=== PATIENT | female | born 1970 | race Two or more races ===

== ENCOUNTER 2020-12-08 12:31 | Outpatient (REF) | payer MEDICAID, SELFPAY ==
--- NOTE | ~2020-12-08 | US_ITS ---
EXAMINATION: ULTRASOUND PELVIS AND TRANSVAGINAL CLINICAL INFORMATION: Postmenopausal bleeding COMPARISON: None TECHNIQUE: Transabdominal and transvaginal imaging of pelvis is performed. FINDINGS: The uterus is anteverted and anteflexed measuring 7.1 cm in length, 3.6 cm in AP and 4.8 cm in transverse dimension. This small hypoechoic lesion in the right upper body of uterus measuring 0.73 x 0.56 x 0.59 cm suggestive of a small fibroid. No additional lesions seen. The uterus is slightly heterogeneous. The endometrial thickness is 0.3 cm. Small nabothian cysts are seen in the cervix. Right ovary measures 2.9 x 1.3 x 1.8 cm and volume 3.5 mL and appears unremarkable. Previously right ovary measured 2.0 x 2.9 x 1.9 cm. Left ovary measures 2.7 x 0.9 x 1.7 cm and volume 2.2 mL. It appears unremarkable. Left ovary measured 3.0 x 2.1 x 2.7 cm. There is no free fluid in the cul-de-sac US/US pelvic and transvaginal IMPRESSION: Small uterine fibroid. Mild heterogeneous uterus with normal endometrial thickness of 0.3 cm. Unremarkable ovaries. Small nabothian cysts in the cervix.
== END 2020-12-08 12:32 | disposition home or self-care (01) ==
LOC: HO.US 12:31
PROVIDERS: PCP Nurse Practitioner Primary Care; Visit Provider Nurse Practitioner Primary Care
DX: N95.0 Postmenopausal bleeding (principal)
CPT/HCPCS: 76830; 76856

== ENCOUNTER 2021-04-11 12:27 | Outpatient (REF) | payer MEDICAID, SELFPAY ==
--- NOTE | ~2021-04-11 | MM_ITS ---
EXAMINATION: MM DIAGNOSTIC DIGITAL BREAST TOMOSYNTHESIS, BILATERAL US DIAGNOSTIC ULTRASOUND BREAST, RIGHT CLINICAL INFORMATION: Pain upper outer right breast from axilla to the periareolar region. No palpable mass. No erythema. The lifetime risk of breast cancer based on the Tyrer-Cuzick Model is 6%. COMPARISON: Mammography: 02/20/2018, 02/14/2017 TECHNIQUE: Digital breast tomosynthesis is performed in both the craniocaudal and mediolateral oblique views along with computer-aided detection (CAD). Synthesized 2D images are generated from the tomosynthesis. Additional exaggerated right CC view is provided. Ultrasound right breast is targeted to the area of clinical concern upper outer quadrant from anterior to posterior breast and axilla. Grayscale imaging and color Doppler are performed without and with harmonics. FINDINGS: There are scattered areas of fibroglandular density (ACR BI-RADS breast composition Category b). Breast tissue composition borders on heterogeneously dense in the bilateral anterior breasts. Parenchymal pattern is similar to prior exams. There are no significant masses, abnormal calcifications, or other abnormalities. There is no developing density. No skin thickening or coarsening of the Oliver's ligaments. No significant changes from prior studies. Ultrasound right breast demonstrates no cystic or solid mass or architectural abnormality. No focal duct ectasia. No skin thickening or edema tracking in soft tissue planes. No adenopathy. Results are discussed with the patient at time of visit. MM/MM tomosynthesis diagnostic BI IMPRESSION: No mammographic evidence of malignancy or focal inflammatory changes. Unremarkable right breast ultrasound. ASSESSMENT: BI-RADS 1: Negative RECOMMENDATION: 1. Patient's breast pain should be managed based on the clinical impression. 2. Otherwise, routine annual screening mammography. This patient's information was entered into a reminder system with a target due date for their next mammogram.
== END 2021-04-11 12:28 | disposition home or self-care (01) ==
LOC: HO.MAMMO 12:27
PROVIDERS: Visit Provider Advanced Practice Midwife
DX: N63.15 Unspecified lump in the right breast, overlapping quadrants (principal)
CPT/HCPCS: 76642; 77062; 77066

== ENCOUNTER 2021-06-14 16:58 | Outpatient (REF) | payer MEDICAID, SELFPAY ==
--- NOTE | ~2021-06-14 | XR_ITS ---
EXAMINATION: XR CERVICAL SPINE CLINICAL INFORMATION: Anesthesia of skin. COMPARISON: None. TECHNIQUE: 6 views of the cervical spine. FINDINGS: No abnormal prevertebral soft tissue swelling is seen. No acute cervical spine fracture is noted. There is mild narrowing of the C6-C7 disc space. Neural foramina appear unremarkable. XR/XR cervical spine 4V IMPRESSION: No significant cervical spine abnormality appreciated.
== END 2021-06-14 16:59 | disposition home or self-care (01) ==
LOC: HO.XRAY 16:58
PROVIDERS: Absent Provider General Practice; PCP General Practice; Visit Provider Internal Medicine
DX: R20.0 Anesthesia of skin (principal)
CPT/HCPCS: 72050

== ENCOUNTER 2021-07-27 08:40 | Outpatient (REF) | payer MEDICAID, SELFPAY ==
--- NOTE | 2021-07-27 | EMG_ITS ---
Left median and ulnar motor and sensory studies were performed. Left radial sensory study was performed and paraspinal muscles with some limb muscles were tested with a needle. IMPRESSION: Mild left mid cervical chronic radiculopathy. MD LUCRECIA Luong/NEAL / [phone]
--- NOTE | ~2021-07-27 | XR_ITS ---
EXAMINATION: XR chest 2V CLINICAL INFORMATION: Reason for Exam ?SARCOID AND ANKYLOSING SPONDYLITIS COMPARISON: Chest radiograph 07/08/2017 TECHNIQUE: 2 views of the chest XR/XR chest 2V FINDINGS/IMPRESSION: Clear lungs. No pneumothorax. No pleural effusion. Normal cardiomediastinal silhouette.
--- NOTE | ~2021-07-27 | XR_ITS ---
EXAMINATION: XR lumbar spine 2-3V CLINICAL INFORMATION: Question sarcoidosis COMPARISON: Sacrum and coccyx radiographs 07/08/2017 TECHNIQUE: 3 views of the lumbar spine XR/XR lumbar spine 2-3V FINDINGS/IMPRESSION: 5 nonrib-bearing lumbar-type vertebral bodies. Vertebral body heights are maintained. Alignment is maintained. Moderate degenerative disc disease at L5-S1 with loss of disc space height and facet arthropathy. Paravertebral soft tissues are unremarkable.
== END 2021-07-27 08:41 | disposition home or self-care (01) ==
LOC: HO.NEURO 08:40
PROVIDERS: Absent Provider Optometrist; PCP General Practice; Visit Provider Internal Medicine
DX: H20.9 Unspecified iridocyclitis (principal); R20.0 Anesthesia of skin
CPT/HCPCS: 71046; 72100; 95886; 95909

== ENCOUNTER 2022-04-12 15:49 | Outpatient (REF) | payer MEDICAID, SELFPAY ==
[2022-04-12 16:14] LABS: Appearance Urine Clear; Color Urine Yellow; Glucose Urine UA Negative (Negative); Leukocyte Esterase Urine Moderate (2+) (Negative); Nitrite Urine Negative (Negative); PH 6.5 (5.0-9.0); Specific Gravity - Urine 1.015 (1.005-1.025); UMIC TRIGGER UACC YES; Urine Blood Negative (Negative); Urine Ketones Negative (Negative); Urine Protein Negative (Neg-Trace)
[2022-04-12 16:24] LABS: Bacteria Urine Trace (None Seen); Hyaline Casts Urine 0-2 /LPF (0-2); RBC Urine 0-2 /HPF (0-2); UACC Culture Trigger YES
== END 2022-04-12 15:50 | disposition home or self-care (01) ==
LOC: HO.LNP 15:49
PROVIDERS: Visit Provider Internal Medicine Rheumatology
DX: H20.13 Chronic iridocyclitis, bilateral (principal)
CPT/HCPCS: 81001; 81003; 87086; 87147

== ENCOUNTER 2022-04-29 11:06 | Emergency (ER) | payer MEDICAID, SELFPAY ==
--- NOTE | ~2022-04-29 | CT_ITS ---
EXAMINATION: CT ANGIOGRAM OF THE CHEST WITH AND WITHOUT CONTRAST (CT PULMONARY ANGIOGRAM FOR PE) CLINICAL INFORMATION: Abnormal EKG. Positive D-Dimer. COMPARISON: Chest and rib radiographs dated 07/08/2017. TECHNIQUE: Prior to contrast administration, noncontrast localization images were obtained. Subsequently, multidetector volumetric imaging was performed from the thoracic inlet to below the diaphragms following the administration of 65 mL Omnipaque 350 intravenous contrast. No contrast reaction reported Sagittal, coronal, and MIP oblique sagittal reformatted images were obtained on the CT workstation, uploaded to PACS, and reviewed. This CT examination was performed using dose optimization techniques as appropriate, variously including the following: *Automated exposure control *Adjustment of mA and/or kV according to patient size (this includes techniques or standardized protocols for targeted exams where dose is matched to indication/reason for exam; i.e. extremities or head) *Use of iterative reconstruction technique Total exam dose-length product 122 mGy-cm FINDINGS: QUALITY OF STUDY/CONTRAST BOLUS: Satisfactory. PULMONARY ARTERIES: No central or segmental pulmonary emboli. THORACIC AORTA: No aneurysm or dissection. LUNG: Minimal linear probable atelectasis within the lingula and right middle lobe. There are faint patchy areas of ground-glass opacity within the left upper lobe, which could represent atelectasis versus a very early infectious or inflammatory process. No large, confluent airspace consolidation. The central airways are patent. PLEURA: No pleural effusion or pneumothorax. MEDIASTINUM: Normal heart size. No pericardial effusion. No hilar or mediastinal lymphadenopathy. No evidence of septal bowing or right heart strain. No coronary artery calcifications. CHEST WALL/AXILLA: No axillary or internal mammary lymphadenopathy. OSSEOUS STRUCTURES: No acute or suspicious osseous abnormality. UPPER ABDOMEN: Unremarkable. No reflux of contrast into the hepatic veins to suggest elevated right heart pressures. CT/CT angio chest PE protocol IMPRESSION: 1. No central or segmental pulmonary embolism. 2. Minimal linear probable atelectasis within the lingula and right middle lobe. Faint patchy ground-glass opacities within the left upper lobe which could represent atelectasis versus a very early infectious or inflammatory process. No large, confluent airspace consolidation. 3. No significant lymphadenopathy. VTE: negative
--- NOTE | ~2022-04-29 | XR_ITS ---
EXAMINATION: XR CHEST CLINICAL INFORMATION: Chest pain, shortness of breath. COMPARISON: 07/27/2021 chest radiographs. TECHNIQUE: 2 views of the chest were obtained. FINDINGS: No significant abnormality is noted involving the heart, lungs, mediastinum, bony thorax or soft tissues. XR/XR chest 2V IMPRESSION: No acute cardiopulmonary process.
[2022-04-29 11:21] VITALS: BP 134/77; PULSE 119; RESP 18; TEMP 38; O2SAT 97; BMI 24.7
--- NOTE | 2022-04-29 11:23 | ED_ITS ---
HPI - URI/Sore Throat General Chief Complaint: Dyspnea <PRIYA Thacker - Last Filed: 04/29/22 11:31> Stated Complaint: SOB <PRIYA Thacker - Last Filed: 04/29/22 11:31> Time Seen by Provider: 04/29/22 12:35 <PRIYA Thacker - Last Filed: 04/29/22 11:31> History of Present Illness HPI Narrative: 52yoF who had COVID-19 approximately 1 month ago reports she was having persistent shortness of breath therefore she followed up with her primary care provider Dr. Garcia in [facility] who then sent her to [facility] for a CT scan with IV contrast last week although she reports she has not received the results and then Saturday night she developed subjective fevers, chills, fatigue, malaise, cough/worsening shortness of breath, dyspnea on exertion, orthopnea, chest tightness/discomfort therefore she came here for further evaluation treatment. She reports she has been taking Motrin Tylenol round the clock. Denies any other symptoms related to this. CT at [facility] showed multiple pulmonary nodules. patient has noticed with exertion she is more short of breath. Patient with new chest pain and new fever. <Tom Zafar MD - Last Filed: 04/29/22 17:15> MD elicited complaint: fever and cough <Tom Zafar MD - Last Filed: 04/29/22 17:15> Pertinent past history: other (covid) <Tom Zafar MD - Last Filed: 04/29/22 17:15> Onset (ago): day(s) <Tom Zafar MD - Last Filed: 04/29/22 17:15> Consistency: intermittent <Tom Zafar MD - Last Filed: 04/29/22 17:15> Severity: mild <Tom Zafar MD - Last Filed: 04/29/22 17:15> Exacerbating factors: exertion <Tom Zafar MD - Last Filed: 04/29/22 17:15> Associated symptoms: cough, chest pain and shortness of breath <Tom Zafar MD - Last Filed: 04/29/22 17:15> Related Data Home Medications: Previous Rx's Medication Instructions Recorded levofloxacin 500 mg tablet 500 mg PO DAILY 10 days #10 tabs 04/29/22 <PRIYA Thacker - Last Filed: 04/29/22 11:31> Allergies/Adverse Reactions: Allergies Allergy/AdvReac Type Severity Reaction Status Date / Time No Known Allergies Allergy Unverified 01/28/20 16:58 [No Known Allergies*] <PRIYA Thacker - Last Filed: 04/29/22 11:31> [facility] Social History Social History: Social History Advance Directives: No Advance Directives Information Provided: No <PRIYA Thacker - Last Filed: 04/29/22 11:31> Physical Exam Vital Signs: Vital Signs: Last Vital Signs Temp 100.4 F 04/29/22 11:21 Pulse 81 04/29/22 15:52 Resp 15 04/29/22 15:52 BP 107/57 L 04/29/22 15:55 Pulse Ox 96 04/29/22 15:52 O2 Del Method 04/29/22 15:52 BMI result Body Mass Index 24.7 <PRIYA Thacker - Last Filed: 04/29/22 11:31> Vital Signs: Last Vital Signs Temp 100.4 F 04/29/22 11:21 Pulse 81 04/29/22 15:52 Resp 15 04/29/22 15:52 BP 107/57 L 04/29/22 15:55 Pulse Ox 96 04/29/22 15:52 O2 Del Method 04/29/22 15:52 BMI result Body Mass Index 24.7 <Tom Zafar MD - Last Filed: 04/29/22 17:15> Course Course Course Narrative: RME-11:30am - 52yoF who had COVID-19 approximately 1 month ago reports she was having persistent shortness of breath therefore she followed up with her primary care provider Dr. Garcia in [facility] who then sent her to [facility] for a CT scan with IV contrast last week although she reports she has not received the results and then Saturday night she developed subjective fevers, chills, fatigue, malaise, cough/worsening shortness of breath, dyspnea on exertion, orthopnea, chest tightness/discomfort therefore she came here for further evaluation treatment. She reports she has been taking Motrin Tylenol round the clock. Denies any other symptoms related to this. Plan: Labs, CXR, EKG, COVID/RSV/flu swab. Patient is tachycardic/febrile. Will give 975 mg of Tylenol. Patient is stable she will be sent back to the waiting room to be evaluated in the ED. Will try to get records from [facility] from the patient's CT scan. <PRIYA Thacker - Last Filed: 04/29/22 11:31> Reevaluation(s) Reevaluation #1: FINDINGS: No significant abnormality is noted involving the heart, lungs, mediastinum, bony thorax or soft tissues. XR/XR chest 2V IMPRESSION: No acute cardiopulmonary process. Dictated By: Dami Oliver MD Signed By: <Electronically signed by Dami Oliver MD in [place]> 04/29/22 1147 <Tom Zafar MD - Last Filed: 04/29/22 17:15> Reevaluation #2: patient with both influenza a and pneumonia will get home on levaquin <Tom Zafar MD - Last Filed: 04/29/22 17:15> Time: 17:13 <Tom Zafar MD - Last Filed: 04/29/22 17:15> Reevaluation #3: I spent 40 minutes of critical care, with interventions, assessments, speaking to patient, consultants, and family. <Tom Zafar MD - Last Filed: 04/29/22 17:15> Medications Administered Discontinued Medications Generic Name Dose Route Start Last Admin Trade Name Freq PRN Reason Stop Dose Admin Acetaminophen 975 mg 04/29/22 11:28 04/29/22 12:12 Acetaminophen 325 Mg Tablet PO 04/29/22 11:29 975 mg ONCE ONE Administration Iohexol 100 ml 04/29/22 16:32 04/29/22 16:32 Iohexol 350 Mg/Ml 100 Ml Infus..Btl IV 04/29/22 16:33 65 ml ONCE ONE Administration <PRIYA Thacker - Last Filed: 04/29/22 11:31> Medications Administered Discontinued Medications Generic Name Dose Route Start Last Admin Trade Name Freq PRN Reason Stop Dose Admin Acetaminophen 975 mg 04/29/22 11:28 04/29/22 12:12 Acetaminophen 325 Mg Tablet PO 04/29/22 11:29 975 mg ONCE ONE Administration Iohexol 100 ml 04/29/22 16:32 04/29/22 16:32 Iohexol 350 Mg/Ml 100 Ml Infus..Btl IV 04/29/22 16:33 65 ml ONCE ONE Administration <Tom Zafar MD - Last Filed: 04/29/22 17:15> Medical Decision Making Differential Diagnosis pneumonia, viral illness, cardiac ischemia, pulmonary embolus <Tom spring MD - Last Filed: 04/29/22 17:15> Admission/Observation given the above differential patient is being considered for admission <Tom Zafar MD - Last Filed: 04/29/22 17:15> Lab Data Result Diagrams: : 04/29/22 12:28 04/29/22 12:28 <PRIYA Thacker - Last Filed: 04/29/22 11:31> Labs: Lab Results 04/29/22 04/29/22 04/29/22 Range/Units 12:21 12:28 12:28 WBC 9.0 (4.8-10.8) X10*3/uL RBC 4.10 L (4.20-5.50) X10*6/uL Hgb 13.0 (12.0-16.0) g/dl Hct 38.2 (37.0-47.0) % MCV 93.2 (80.0-98.0) fL MCH 31.7 (27.0-33.0) pg MCHC 34.0 (31.0-35.0) g/dl RDW 12.9 (11.0-16.0) % Plt Count 147 L (160-400) X10*3/uL MPV 9.7 (9.4-12.3) fL Immature Gran % (Auto) 0.2 (0.0-0.4) % Neut % (Auto) 84.0 H (45-73) % Lymph % (Auto) 6.6 L (20-40) % [place] % (Auto) 9.0 (2-11) % Eos % (Auto) 0.0 (0-4) % Baso % (Auto) 0.2 (0-2) % Lymph # (Auto) 0.6 L (1.2-4.9) X10*3/uL [place] # (Auto) 0.8 (0.1-1.2) X10*3/uL Eos # (Auto) 0.0 (0.0-0.4) X10*3/uL Baso # (Auto) 0.0 (0.0-0.2) X10*3/uL Abs Immat Gran (auto) 0.02 (0.00-0.03) X10*3/uL Absolute Neuts (auto) 7.5 (2.0-8.3) x10*3/uL Absolute Nucleated RBC 0.000 (0.0-0.012) X10*3/uL Nucleated RBC % (auto) 0.0 (0.0-0.2) /100WBC PT 12.4 (10.0-13.1) SEC INR 1.1 (0.9-1.1) D-Dimer High Sensitivty 332 NG/ML Sodium (135-145) mmol/L Potassium (3.3-5.1) mmol/L Chloride (96-108) mmol/L Carbon Dioxide (22-29) mmol/L Anion Gap (12-20) BUN (9-16) mg/dL Creatinine (0.5-1.4) mg/dL Estim Creat Clear Calc Estimated GFR Random Glucose (60-115) mg/dL Calcium (8.4-10.2) mg/dL Magnesium (1.6-2.6) mg/dL Total Bilirubin (0.0-1.0) mg/dL AST (5-31) U/L ALT (0-31) U/L Alkaline Phosphatase (39-117) U/L Troponin I High Sens (<3.5-17.0) ng/L B-Natriuretic Peptide (<100) pg/mL Total Protein (6.5-8.0) g/dL Albumin (3.5-5.0) g/dL Influenza Type A (PCR) POSITIVE A (Negative) Influenza Type B (PCR) NEGATIVE (Negative) RSV RNA Qual (PCR) NEGATIVE (Negative) SARS-CoV-2 RNA (RT-PCR) NEGATIVE (Negative) 04/29/22 04/29/22 04/29/22 Range/Units 12:28 12:28 13:48 WBC (4.8-10.8) X10*3/uL RBC (4.20-5.50) X10*6/uL Hgb (12.0-16.0) g/dl Hct (37.0-47.0) % MCV (80.0-98.0) fL MCH (27.0-33.0) pg MCHC (31.0-35.0) g/dl RDW (11.0-16.0) % Plt Count (160-400) X10*3/uL MPV (9.4-12.3) fL Immature Gran % (Auto) (0.0-0.4) % Neut % (Auto) (45-73) % Lymph % (Auto) (20-40) % Assumption % (Auto) (2-11) % Eos % (Auto) (0-4) % Baso % (Auto) (0-2) % Lymph # (Auto) (1.2-4.9) X10*3/uL Assumption # (Auto) (0.1-1.2) X10*3/uL Eos # (Auto) (0.0-0.4) X10*3/uL Baso # (Auto) (0.0-0.2) X10*3/uL Abs Immat Gran (auto) (0.00-0.03) X10*3/uL Absolute Neuts (auto) (2.0-8.3) x10*3/uL Absolute Nucleated RBC (0.0-0.012) X10*3/uL Nucleated RBC % (auto) (0.0-0.2) /100WBC PT (10.0-13.1) SEC INR (0.9-1.1) D-Dimer High Sensitivty NG/ML Sodium 137 (135-145) mmol/L Potassium 4.0 (3.3-5.1) mmol/L Chloride 106 (96-108) mmol/L Carbon Dioxide 23 (22-29) mmol/L Anion Gap 12 (12-20) BUN 9 (9-16) mg/dL Creatinine 0.80 (0.5-1.4) mg/dL Estim Creat Clear Calc 72.9 Estimated GFR > 60 Random Glucose 126 H (60-115) mg/dL Calcium 8.5 (8.4-10.2) mg/dL Magnesium 1.8 (1.6-2.6) mg/dL Total Bilirubin 0.5 (0.0-1.0) mg/dL AST 21 (5-31) U/L ALT 16 (0-31) U/L Alkaline Phosphatase 46 (39-117) U/L Troponin I High Sens < 3.5 (<3.5-17.0) ng/L B-Natriuretic Peptide 13 (<100) pg/mL Total Protein 7.2 (6.5-8.0) g/dL Albumin 4.3 (3.5-5.0) g/dL Influenza Type A (PCR) (Negative) Influenza Type B (PCR) (Negative) RSV RNA Qual (PCR) (Negative) SARS-CoV-2 RNA (RT-PCR) (Negative) <PRIYA Thacker - Last Filed: 04/29/22 11:31> Lab Results 04/29/22 04/29/22 04/29/22 Range/Units 12:21 12:28 12:28 WBC 9.0 (4.8-10.8) X10*3/uL RBC 4.10 L (4.20-5.50) X10*6/uL Hgb 13.0 (12.0-16.0) g/dl Hct 38.2 (37.0-47.0) % MCV 93.2 (80.0-98.0) fL MCH 31.7 (27.0-33.0) pg MCHC 34.0 (31.0-35.0) g/dl RDW 12.9 (11.0-16.0) % Plt Count 147 L (160-400) X10*3/uL MPV 9.7 (9.4-12.3) fL Immature Gran % (Auto) 0.2 (0.0-0.4) % Neut % (Auto) 84.0 H (45-73) % Lymph % (Auto) 6.6 L (20-40) % Assumption % (Auto) 9.0 (2-11) % Eos % (Auto) 0.0 (0-4) % Baso % (Auto) 0.2 (0-2) % Lymph # (Auto) 0.6 L (1.2-4.9) X10*3/uL Assumption # (Auto) 0.8 (0.1-1.2) X10*3/uL Eos # (Auto) 0.0 (0.0-0.4) X10*3/uL Baso # (Auto) 0.0 (0.0-0.2) X10*3/uL Abs Immat Gran (auto) 0.02 (0.00-0.03) X10*3/uL Absolute Neuts (auto) 7.5 (2.0-8.3) x10*3/uL Absolute Nucleated RBC 0.000 (0.0-0.012) X10*3/uL Nucleated RBC % (auto) 0.0 (0.0-0.2) /100WBC PT 12.4 (10.0-13.1) SEC INR 1.1 (0.9-1.1) D-Dimer High Sensitivty 332 NG/ML Sodium (135-145) mmol/L Potassium (3.3-5.1) mmol/L Chloride (96-108) mmol/L Carbon Dioxide (22-29) mmol/L Anion Gap (12-20) BUN (9-16) mg/dL Creatinine (0.5-1.4) mg/dL Estim Creat Clear Calc Estimated GFR Random Glucose (60-115) mg/dL Calcium (8.4-10.2) mg/dL Magnesium (1.6-2.6) mg/dL Total Bilirubin (0.0-1.0) mg/dL AST (5-31) U/L ALT (0-31) U/L Alkaline Phosphatase (39-117) U/L Troponin I High Sens (<3.5-17.0) ng/L B-Natriuretic Peptide (<100) pg/mL Total Protein (6.5-8.0) g/dL Albumin (3.5-5.0) g/dL Influenza Type A (PCR) POSITIVE A (Negative) Influenza Type B (PCR) NEGATIVE (Negative) RSV RNA Qual (PCR) NEGATIVE (Negative) SARS-CoV-2 RNA (RT-PCR) NEGATIVE (Negative) 04/29/22 04/29/22 04/29/22 Range/Units 12:28 12:28 13:48 WBC (4.8-10.8) X10*3/uL RBC (4.20-5.50) X10*6/uL Hgb (12.0-16.0) g/dl Hct (37.0-47.0) % MCV (80.0-98.0) fL MCH (27.0-33.0) pg MCHC (31.0-35.0) g/dl RDW (11.0-16.0) % Plt Count (160-400) X10*3/uL MPV (9.4-12.3) fL Immature Gran % (Auto) (0.0-0.4) % Neut % (Auto) (45-73) % Lymph % (Auto) (20-40) % Assumption % (Auto) (2-11) % Eos % (Auto) (0-4) % Baso % (Auto) (0-2) % Lymph # (Auto) (1.2-4.9) X10*3/uL Assumption # (Auto) (0.1-1.2) X10*3/uL Eos # (Auto) (0.0-0.4) X10*3/uL Baso # (Auto) (0.0-0.2) X10*3/uL Abs Immat Gran (auto) (0.00-0.03) X10*3/uL Absolute Neuts (auto) (2.0-8.3) x10*3/uL Absolute Nucleated RBC (0.0-0.012) X10*3/uL Nucleated RBC % (auto) (0.0-0.2) /100WBC PT (10.0-13.1) SEC INR (0.9-1.1) D-Dimer High Sensitivty NG/ML Sodium 137 (135-145) mmol/L Potassium 4.0 (3.3-5.1) mmol/L Chloride 106 (96-108) mmol/L Carbon Dioxide 23 (22-29) mmol/L Anion Gap 12 (12-20) BUN 9 (9-16) mg/dL Creatinine 0.80 (0.5-1.4) mg/dL Estim Creat Clear Calc 72.9 Estimated GFR > 60 Random Glucose 126 H (60-115) mg/dL Calcium 8.5 (8.4-10.2) mg/dL Magnesium 1.8 (1.6-2.6) mg/dL Total Bilirubin 0.5 (0.0-1.0) mg/dL AST 21 (5-31) U/L ALT 16 (0-31) U/L Alkaline Phosphatase 46 (39-117) U/L Troponin I High Sens < 3.5 (<3.5-17.0) ng/L B-Natriuretic Peptide 13 (<100) pg/mL Total Protein 7.2 (6.5-8.0) g/dL Albumin 4.3 (3.5-5.0) g/dL Influenza Type A (PCR) (Negative) Influenza Type B (PCR) (Negative) RSV RNA Qual (PCR) (Negative) SARS-CoV-2 RNA (RT-PCR) (Negative) <Tom Zafar MD - Last Filed: 04/29/22 17:15> Independent Interpretation I performed an independent interpretation of an: EKG (My independent interpretentation is Sinus tachycardia, flipped ts inferior and st depression laterally) and Plain X-Ray (CXR viewed and interpreted by me is no infiltrate this agrees with the radiologist) <Tom Zafar MD - Last Filed: 04/29/22 17:15> Radiology Impression Discussion of test interpretation with radiology: I have reviewed the radiologist's reading. <Tom Zafar MD - Last Filed: 04/29/22 17:15> Radiologist Impression: IMPRESSION: 1.? No central or segmental pulmonary embolism. ? 2.? Minimal linear probable atelectasis within the lingula and right middle lobe. Faint patchy ground-glass opacities within the left upper lobe which could represent atelectasis versus a very early infectious or inflammatory process. No large, confluent airspace consolidation. ? 3.? No significant lymphadenopathy. ? VTE: negative Dictated By: Daron Nagel MD Signed By: <Electronically signed by Daron Nagel MD in [place]> 04/29/22 170 <Tom Zafar MD - Last Filed: 04/29/22 17:15> Discharge Plan Discharge Clinical Impression: Pneumonia, Influenza A <PRIYA Thacker - Last Filed: 04/29/22 11:31> Patient Disposition: Home, Self-Care <PRIYA Thacker - Last Filed: 04/29/22 11:31> Instructions: Pneumonia (ED) <PRIYA Thacker - Last Filed: 04/29/22 11:31> Prescriptions: New levofloxacin 500 mg tablet 500 mg PO DAILY 10 Days Qty: 10 0RF <PRIYA Thacker - Last Filed: 04/29/22 11:31> Referrals: Sylvia Klein MD [Primary Care Provider] - 1 week <PRIYA Thacker - Last Filed: 04/29/22 11:31>
--- NOTE | 2022-04-29 11:27 | ECG_ITS ---
Test Reason : SOB Blood Pressure : / mmHG Vent. Rate : 103 BPM Atrial Rate : 103 BPM P-R Int : 136 ms QRS Dur : 074 ms QT Int : 324 ms P-R-T Axes : 030 -48 -15 degrees QTc Int : 424 ms Sinus tachycardia Left axis deviation Pulmonary disease pattern Nonspecific ST and T wave abnormality Abnormal ECG When compared with ECG of 06-JAN-2016 11:53, Vent. rate has increased BY [address] now depressed in Lateral leads T wave inversion now evident in Anterior leads Referred By: Shauna Dickson Electronically Signed By:Clinton Alvarez
[2022-04-29] MEDS: Acetaminophen 325 MG TABLET 975 MG PO (12:12)
[2022-04-29 12:33] LABS: MANUAL DIFF FLAG NO
[2022-04-29 12:34] LABS: Basophils Percent Auto 0.2 % (0-2); Hematocrit 38.2 % (37.0-47.0); Imm Gran Abs Auto 0.02 X10*3/uL (0.00-0.03); Imm Gran Pct Auto 0.2 % (0.0-0.4); Lymphocytes Absolute Auto 0.6 X10*3/uL (1.2-4.9); Lymphocytes Percent Auto 6.6 % (20-40); Mean Corpuscular Hemoglobin 31.7 pg (27.0-33.0); Mean Corpuscular Volume 93.2 fL (80.0-98.0); Mean Platelet Volume 9.7 fL (9.4-12.3); Monocytes Absolute Auto 0.8 X10*3/uL (0.1-1.2); Neutrophils Absolute Auto 7.5 x10*3/uL (2.0-8.3); Platelet Count 147 X10*3/uL (160-400); Red Cell Distribution Width 12.9 % (11.0-16.0)
[2022-04-29 12:42] LABS: INTERNATIONAL NORM RATIO 1.1 (0.9-1.1); Prothrombin Time 12.4 SEC (10.0-13.1)
[2022-04-29 13:01] LABS: D Dimer High Sensitivity 332 NG/ML
[2022-04-29 13:02] LABS: Alanine Aminotransferase 16 U/L (0-31); Albumin Level 4.3 g/dL (3.5-5.0); Alkaline Phosphatase 46 U/L (39-117); Anion Gap 12 (12-20); Aspartate Amino Transferase 21 U/L (5-31); Bilirubin Total 0.5 mg/dL (0.0-1.0); Blood Urea Nitrogen 9 mg/dL (9-16); Calcium 8.5 mg/dL (8.4-10.2); Carbon Dioxide 23 mmol/L (22-29); Chloride 106 mmol/L (96-108); Creatinine Clr Calc Pharmacy 72.9; Estimated Glomerular Filt Rate > 60; Glucose Random 126 mg/dL (60-115); Magnesium 1.8 mg/dL (1.6-2.6); Sodium 137 mmol/L (135-145); Total Protein 7.2 g/dL (6.5-8.0)
[2022-04-29 13:06] LABS: B Type Natriuretic Peptide 13 pg/mL (<100)
[2022-04-29 13:17] LABS: Influenza A PCR POSITIVE (Negative); Influenza B PCR NEGATIVE (Negative); Resp Syncy Virus RNA Qual PCR NEGATIVE (Negative); SARS COV2 PCR INHOUSE NEGATIVE (Negative)
[2022-04-29 14:46] LABS: Troponin-I High Sensitivity < 3.5 ng/L (<3.5-17.0)
[2022-04-29 15:52] VITALS: BP 98/44; PULSE 81; RESP 15; O2SAT 96
[2022-04-29 15:55] VITALS: BP 107/57
[2022-04-29] MEDS: iohexoL 350 MG/ML 100 ML INFUS..BTL IV (16:32)
[2022-04-29] MEDS: levoFLOXacin 500 MG TABLET PO (17:46)
== END 2022-04-29 18:03 | disposition home or self-care (01) ==
PROVIDERS: Physician Assistant Medical; Emergency Provider Emergency Medicine; PCP General Practice
DX: J10.00 Influenza due to other identified influenza virus with unspecified type of pneumonia (principal); R06.02 Shortness of breath; Z20.822 Contact with and (suspected) exposure to COVID-19; Z79.899 Other long term (current) drug therapy
CPT/HCPCS: 0241U; 36415; 71046; 71275; 80053; 83735; 83880; 84484; 85025; 85379; 85610; 93005; 99284; Q9967

== ENCOUNTER 2022-08-21 08:15 | Outpatient (REF) | payer MEDICAID, SELFPAY ==
--- NOTE | ~2022-08-21 | MM_ITS ---
EXAMINATION: MM SCREENING DIGITAL BREAST TOMOSYNTHESIS, BILATERAL CLINICAL INFORMATION: Screening. Asymptomatic. The lifetime risk of breast cancer based on the Tyrer-Cuzick Model is 6%. COMPARISON: Mammography: 04/11/2021, 02/20/2018, 02/14/2017; ultrasound right breast 04/11/2021 TECHNIQUE: Digital breast tomosynthesis is performed in both the craniocaudal and mediolateral oblique views along with computer-aided detection (CAD). Synthesized 2D images are generated from the tomosynthesis. FINDINGS: The breasts are heterogeneously dense, which may obscure small masses (ACR BI-RADS breast composition Category c). Denser breast tissue composition is predominantly in the anterior breasts, similar to prior studies. Remainder of the breasts are average fibroglandular. Parenchymal pattern is similar to prior studies and there is no developing density or architectural abnormality. There are no significant masses, abnormal calcifications, or other abnormalities. The axilla and and skin contours are unremarkable. MM/MM tomosynthesis screening BI IMPRESSION: No mammographic evidence of malignancy. ASSESSMENT: BI-RADS 1: Negative RECOMMENDATION: Routine annual mammography screening. This patient's information was entered into a reminder system with a target due date for their next mammogram.
== END 2022-08-21 08:16 | disposition home or self-care (01) ==
LOC: HO.MAMMO 08:15
PROVIDERS: PCP General Practice; Visit Provider Advanced Practice Midwife
DX: Z12.31 Encounter for screening mammogram for malignant neoplasm of breast (principal)
CPT/HCPCS: 77063; 77067

== ENCOUNTER 2023-01-11 15:40 | Outpatient (REF) | payer MEDICAID, SELFPAY ==
[2023-01-11 17:22] LABS: Basophils Absolute Auto 0.1 X10*3/uL (0.0-0.2); Eosinophils Absolute Auto 0.1 X10*3/uL (0.0-0.4); Eosinophils Percent Auto 1.2 % (0-4); Hematocrit 37.8 % (37.0-47.0); Hemoglobin 12.7 g/dl (12.0-16.0); Imm Gran Abs Auto 0.01 X10*3/uL (0.00-0.03); Imm Gran Pct Auto 0.2 % (0.0-0.4); Lymphocytes Absolute Auto 1.8 X10*3/uL (1.2-4.9); Lymphocytes Percent Auto 35.5 % (20-40); MANUAL DIFF FLAG NO; Mean Corpuscular HGB Conc 33.6 g/dl (31.0-35.0); Mean Corpuscular Hemoglobin 30.5 pg (27.0-33.0); Mean Corpuscular Volume 90.6 fL (80.0-98.0); Mean Platelet Volume 10.4 fL (9.4-12.3); Monocytes Absolute Auto 0.5 X10*3/uL (0.1-1.2); Monocytes Percent Auto 9.6 % (2-11); Neutrophils Absolute Auto 2.6 x10*3/uL (2.0-8.3); Neutrophils Percent Auto 52.5 % (45-73); Platelet Count 204 X10*3/uL (160-400); Red Blood Count 4.17 X10*6/uL (4.20-5.50); Red Cell Distribution Width 12.1 % (11.0-16.0)
[2023-01-11 18:47] LABS: Alanine Aminotransferase 15 U/L (0-31); Albumin Level 4.2 g/dL (3.5-5.0); Alkaline Phosphatase 36 U/L (39-117); Anion Gap 13 (12-20); Aspartate Amino Transferase 16 U/L (5-31); Bilirubin Total 0.4 mg/dL (0.0-1.0); Blood Urea Nitrogen 11 mg/dL (9-16); Calcium 9.2 mg/dL (8.4-10.2); Carbon Dioxide 23 mmol/L (22-29); Chloride 106 mmol/L (96-108); Estimated Glomerular Filt Rate > 60; Glucose Random 93 mg/dL (60-115); Potassium 4.3 mmol/L (3.3-5.1); Sodium 138 mmol/L (135-145); Total Protein 7.3 g/dL (6.5-8.0)
[2023-01-14 10:34] LABS: Absolute CD3 Count 1375 cells/uL (840-3060); Absolute CD4 Count 857 cells/uL (490-1740); Absolute CD8 Count 460 cells/uL (180-1170); Absolute Lymphocytes 1735 cells/uL (850-3900); CD4 CD8 Ratio 1.86 (0.86-5.00); Percent CD3 Cells 79 % (57-85); Percent CD4 Cells 49 % (30-61); Percent CD8 Cells 26 % (12-42)
[2023-01-14 14:58] LABS: HIV RNA PCR Qn Copies 41 copies/mL (NOT DETECTED); HIV RNA PCR Qn Log Copies 1.61 (NOT DETECTED)
== END 2023-01-11 15:41 | disposition home or self-care (01) ==
LOC: HO.HHCL 15:40
PROVIDERS: Visit Provider Family Medicine
DX: B20 Human immunodeficiency virus [HIV] disease (principal)
CPT/HCPCS: 36415; 80053; 85025; 86359; 86360; 87536

== ENCOUNTER 2023-05-24 11:02 | Outpatient (REF) | payer MEDICAID, SELFPAY ==
--- NOTE | ~2023-05-24 | XR_ITS ---
EXAMINATION: XR CHEST CLINICAL INFORMATION: Ongoing cough, chest discomfort and back pain. Evaluate for pneumonia. COMPARISON: 04/29/2022 TECHNIQUE: 2 views of the chest were obtained. FINDINGS: Lungs are well expanded. The bronchial atkinson are chronically diffusely thickened. On the lateral radiograph, linear opacities of atelectasis projects over the right middle lobe/lingula. Linear streaks of atelectasis were present in the right middle lobe and lingula on 04/29/2022. No acute pulmonary abnormality. No consolidation or pleural effusion. Cardiac silhouette has normal size and contour. There is chronic mild anterior height loss of the T6 and T7 vertebral bodies. XR/XR chest 2V IMPRESSION: * The bronchial atkinson are chronically thickened. Correlate for any history of asthma or bronchitis. No pneumonia. * There are persistent or recurrent linear opacities of atelectasis in the lingula and/or right middle lobe. No new abnormalities compared to 04/29/2022.
== END 2023-05-24 11:03 | disposition home or self-care (01) ==
LOC: HO.HHCX 11:02
PROVIDERS: Visit Provider Student in an Organized Health Care Education/Training Program
DX: R05.9 Cough, unspecified (principal)
CPT/HCPCS: 71046

== ENCOUNTER 2023-07-15 16:40 | Outpatient (REF) | payer MEDICAID, SELFPAY ==
[2023-08-03 09:18] LABS: HPV mRNA E6/E7 rflx Not Detected (Not Detected)
== END 2023-07-15 16:41 | disposition home or self-care (01) ==
LOC: HO.HHCLNP 16:40
PROVIDERS: Visit Provider Advanced Practice Midwife
DX: Z01.419 Encounter for gynecological examination (general) (routine) without abnormal findings (principal); B20 Human immunodeficiency virus [HIV] disease; K62.82 Dysplasia of anus; N93.9 Abnormal uterine and vaginal bleeding, unspecified
CPT/HCPCS: 87624; 88112; 88142

== ENCOUNTER 2023-07-26 08:35 | Outpatient (REF) | payer MEDICAID, SELFPAY ==
[2023-07-26 11:41] LABS: MANUAL DIFF FLAG NO
[2023-07-26 11:48] LABS: Basophils Absolute Auto 0.1 X10*3/uL (0.0-0.2); Basophils Percent Auto 1.1 % (0-2); Eosinophils Absolute Auto 0.1 X10*3/uL (0.0-0.4); Eosinophils Percent Auto 1.5 % (0-4); Hematocrit 36.6 % (37.0-47.0); Hemoglobin 12.7 g/dl (12.0-16.0); Imm Gran Abs Auto 0.01 X10*3/uL (0.00-0.03); Imm Gran Pct Auto 0.2 % (0.0-0.4); Lymphocytes Absolute Auto 1.7 X10*3/uL (1.2-4.9); Lymphocytes Percent Auto 37.3 % (20-40); Mean Corpuscular HGB Conc 34.7 g/dl (31.0-35.0); Mean Corpuscular Hemoglobin 31.3 pg (27.0-33.0); Mean Corpuscular Volume 90.1 fL (80.0-98.0); Monocytes Absolute Auto 0.4 X10*3/uL (0.1-1.2); Monocytes Percent Auto 7.9 % (2-11); Neutrophils Absolute Auto 2.4 x10*3/uL (2.0-8.3); Platelet Count 213 X10*3/uL (160-400); Red Blood Count 4.06 X10*6/uL (4.20-5.50); Red Cell Distribution Width 12.4 % (11.0-16.0); White Blood Count 4.5 X10*3/uL (4.8-10.8)
[2023-07-26 12:11] LABS: Alanine Aminotransferase 17 U/L (0-31); Albumin Level 4.4 g/dL (3.5-5.0); Alkaline Phosphatase 44 U/L (39-117); Anion Gap 13 (12-20); Aspartate Amino Transferase 17 U/L (5-31); Bilirubin Total 0.4 mg/dL (0.0-1.0); Blood Urea Nitrogen 14 mg/dL (9-16); Calcium 9.8 mg/dL (8.4-10.2); Carbon Dioxide 25 mmol/L (22-29); Chloride 108 mmol/L (96-108); Cholesterol 183 mg/dL (<200); Estimated Glomerular Filt Rate > 60; Glucose Random 98 mg/dL (60-115); HDL Cholesterol 37 mg/dL (>40); LDL Cholesterol Calculated 122 mg/dL (<100); Potassium 4.2 mmol/L (3.3-5.1); Sodium 142 mmol/L (135-145); Total Protein 7.4 g/dL (6.5-8.0); Triglycerides 124 mg/dL (<150)
[2023-07-26 12:22] LABS: Syphilis Screen Nonreactive (Nonreactive)
[2023-07-26 12:27] LABS: ~HepC Num1 7.78 S/CO (0.00-0.79); ~Hepatitis C Antibody Reactive (Nonreactive)
[2023-07-26 12:34] LABS: Reflex LDLD? No
[2023-07-28 20:39] LABS: TS Negative Control Passed; TS Panel A 0; TS Panel B 0; TS Positive Control Passed; TSpotTB Negative (Negative)
[2023-07-29 09:59] LABS: Absolute CD3 Count 1222 cells/uL (840-3060); Absolute CD4 Count 809 cells/uL (490-1740); Absolute CD8 Count 379 cells/uL (180-1170); Absolute Lymphocytes 1818 cells/uL (850-3900); CD4 CD8 Ratio 2.14 (0.86-5.00); Percent CD3 Cells 67 % (57-85); Percent CD4 Cells 45 % (30-61); Percent CD8 Cells 21 % (12-42)
[2023-07-29 13:49] LABS: HCV Log PCR <1.18 NOT DETECTED Log IU/mL (NOT DETECTED); HepC Viral Load <15 NOT DETECTED IU/mL (NOT DETECTED)
[2023-07-29 18:08] LABS: HIV RNA PCR Qn Copies 56 copies/mL (NOT DETECTED); HIV RNA PCR Qn Log Copies 1.75 (NOT DETECTED)
== END 2023-07-26 08:36 | disposition home or self-care (01) ==
LOC: HO.HHCL 08:35
PROVIDERS: Visit Provider Student in an Organized Health Care Education/Training Program
DX: B20 Human immunodeficiency virus [HIV] disease (principal)
CPT/HCPCS: 36415; 80053; 80061; 85025; 86359; 86360; 86481; 86780; 86803; 87522; 87536

== ENCOUNTER 2023-07-26 10:55 | Outpatient (REF) | payer MEDICAID, SELFPAY ==
--- NOTE | ~2023-07-26 | MM_ITS ---
EXAMINATION: MM DIAGNOSTIC DIGITAL BREAST TOMOSYNTHESIS, BILATERAL US BREAST LIMITED, LEFT MAMMOGRAPHY: CLINICAL INFORMATION: 53-year-old female complaining of left axillary pain, rule out mass. Patient here for bilateral screening as well. COMPARISON: Mammography: 08/21/2022, 04/11/2021, 02/20/2018, 02/14/2017. Ultrasound right breast 04/11/2021 TECHNIQUE: Digital breast tomosynthesis is performed in both the craniocaudal and mediolateral oblique views along with computer-aided detection (CAD). Synthesized 2D images are generated from the tomosynthesis. FINDINGS: The breasts are heterogeneously dense, which may obscure small masses (ACR BI-RADS breast composition Category c). There are no suspicious masses, suspicious grouped calcifications, or areas of architectural distortion in either breast. There are vascular calcifications. The parenchymal pattern is stable from prior exams. No abnormality noted in the axillary regions bilaterally. No skin abnormalities. ULTRASOUND: CLINICAL INFORMATION: Left axillary pain, rule out mass. COMPARISON: No relevant prior. TECHNIQUE: Targeted sonographic evaluation was performed using a high frequency linear transducer. Attention was focused on the left upper outer quadrant and left axilla in the region of breast pain. Selected archived documentation. FINDINGS: LEFT BREAST: There is a mixture of fatty and fibroglandular tissue. No suspicious mass is seen. There is no pathologic acoustic shadowing. No cystic abnormalities. There is no abnormal axillary adenopathy. No ultrasonographic abnormality is present in the left axilla in the region of pain. MM/MM tomosynthesis diagnostic BI IMPRESSION: There are no findings in either breast suspicious for malignancy. There is no mammographic or ultrasonographic abnormality in the left axilla in the region of axillary pain. Recommend clinical management of these symptoms. Otherwise, recommend resuming routine annual screening mammography. OVERALL ASSESSMENT: Mammography: BI-RADS 1 - Negative Ultrasound: BI-RADS 1 - Negative RECOMMENDATION: 1. Patient should be managed based on the clinical impression. 2. Otherwise, routine annual screening mammography. This patient's information was entered into a reminder system with a target due date for their next mammogram.
--- NOTE | ~2023-07-26 | US_ITS ---
EXAMINATION: US PELVIS CLINICAL INFORMATION: AUB COMPARISON: None available. TECHNIQUE: Ultrasound of the pelvis is performed using both transabdominal and transvaginal transducers along with Doppler. Transvaginal imaging is performed due to inadequate visualization transabdominally. FINDINGS: Uterus: The uterus is anteverted anteflexed and measures 7.1 x 2.6 x 4.3 cm. The double wall endometrial thickness is 0.2-0.3 cm. The uterus is smooth in contour and has normal myometrial echogenicity. No visible fibroid. A fibroid ultrasound was visualized on the previous ultrasound exam 12/08/2020. Adnexa: Both ovaries are visualized. There is normal color flow to the adnexa. There is no ovarian torsion. There is no pelvic ascites or fluid collection. Right ovary measures 2.2 x 0.9 x 1.5 cm. Volume 1.6 mL previously right ovary measured 2.9 x 1.3 x 1.8 cm Left ovary measures 1.9 x 1.0 x 1.4 cm. Volume 1.4 mL There is no free fluid in the cul-de-sac. Previously left ovary measured 2.7 x 0.9 x 1.7 cm. US/US pelvic and transvaginal IMPRESSION: Unremarkable uterus and ovaries.
== END 2023-07-26 10:56 | disposition home or self-care (01) ==
LOC: HO.MAMMO 10:55
PROVIDERS: Visit Provider Advanced Practice Midwife
DX: N64.4 Mastodynia (principal); N93.9 Abnormal uterine and vaginal bleeding, unspecified
CPT/HCPCS: 76642; 76830; 76856; 77062; 77066

== ENCOUNTER → 2023-07-26 11:00 | Outpatient (BNV) | payer MEDICAID, SELFPAY | PROVIDERS: Visit Provider Radiology Diagnostic Radiology | DX: R92.1 Mammographic calcification found on diagnostic imaging of breast (principal) | CPT/HCPCS: 76642; 77062; 77066 ==

== ENCOUNTER 2023-09-30 16:43 | Outpatient (REF) | payer MEDICAID, SELFPAY ==
[2023-10-01 10:01] LABS: HBS Num1 5.41 mIU/mL (0-7.99); HBc Num1 0.18 S/CO (0.00-0.79); HBsAGNum1 0.32 S/CO (0.00-0.99); Hepatitis B Core Antibody Nonreactive (Nonreactive); Hepatitis B Surface Antigen Negative (Negative); ~HepC Num1 7.49 S/CO (0.00-0.79); ~Hepatitis B Surface Antibody NONREACTIVE (Nonreactive); ~Hepatitis C Antibody Reactive (Nonreactive)
== END 2023-09-30 16:44 | disposition home or self-care (01) ==
LOC: HO.HHCLNP 16:43
PROVIDERS: Visit Provider Internal Medicine
DX: Z20.6 Contact with and (suspected) exposure to human immunodeficiency virus [HIV] (principal); Z20.5 Contact with and (suspected) exposure to viral hepatitis
CPT/HCPCS: 36415; 86704; 86706; 86803; 87340

== ENCOUNTER 2024-02-26 17:45 | Outpatient (REF) | payer MEDICAID, SELFPAY ==
[2024-02-27 11:34] LABS: Bacterial Vaginosis PCR NEGATIVE (Negative); Candida Group PCR NOT DETECTED (Not Detect); Candida glab krusei PCR NOT DETECTED (Not Detect); Trichomonas vaginalis PCR NOT DETECTED (Not Detect)
== END 2024-02-26 17:46 | disposition home or self-care (01) ==
LOC: HO.LNP 17:45
PROVIDERS: Visit Provider Advanced Practice Midwife
DX: N89.8 Other specified noninflammatory disorders of vagina (principal); R39.15 Urgency of urination
CPT/HCPCS: 0352U; 87086

== ENCOUNTER 2024-03-04 13:41 | Outpatient (REF) | payer MEDICAID, SELFPAY ==
[2024-03-04 14:22] LABS: Appearance Urine Clear; Color Urine Yellow; Glucose Urine UA Negative (Negative); Leukocyte Esterase Urine Moderate (2+) (Negative); Nitrite Urine Negative (Negative); PH 7.5 (5.0-9.0); UMIC TRIGGER UA YES; Urine Blood Negative (Negative); Urine Ketones Negative (Negative); Urine Protein Negative (Neg-Trace)
[2024-03-04 14:27] LABS: Bacteria Urine None Seen (None Seen); Hyaline Casts Urine 0-2 /LPF (0-2); RBC Urine 0-2 /HPF (0-2)
== END 2024-03-04 13:42 | disposition home or self-care (01) ==
LOC: HO.CHCLDS 13:41
PROVIDERS: Visit Provider Advanced Practice Midwife
DX: R39.15 Urgency of urination (principal)
CPT/HCPCS: 81001; 87086

== ENCOUNTER 2024-04-20 08:42 | Outpatient (REF) | payer MEDICAID, SELFPAY ==
[2024-04-20 14:20] LABS: MANUAL DIFF FLAG NO
[2024-04-20 14:22] LABS: Basophils Percent Auto 0.9 % (0-2); Eosinophils Absolute Auto 0.1 X10*3/uL (0.0-0.4); Eosinophils Percent Auto 1.7 % (0-4); Hematocrit 38.2 % (37.0-47.0); Hemoglobin 13.1 g/dl (12.0-16.0); Lymphocytes Absolute Auto 1.8 X10*3/uL (1.2-4.9); Lymphocytes Percent Auto 41.7 % (20-40); Mean Corpuscular HGB Conc 34.3 g/dl (31.0-35.0); Mean Corpuscular Hemoglobin 31.4 pg (27.0-33.0); Mean Corpuscular Volume 91.6 fL (80.0-98.0); Mean Platelet Volume 10.4 fL (9.4-12.3); Monocytes Absolute Auto 0.4 X10*3/uL (0.1-1.2); Monocytes Percent Auto 9.2 % (2-11); Neutrophils Percent Auto 46.5 % (45-73); Platelet Count 222 X10*3/uL (160-400); Red Blood Count 4.17 X10*6/uL (4.20-5.50); Red Cell Distribution Width 12.6 % (11.0-16.0); White Blood Count 4.2 X10*3/uL (4.8-10.8)
[2024-04-20 14:30] LABS: Estimated Average Glucose 108 mg/dL; Hemoglobin A1C 117.6901 umol/L; Hemoglobin A1c % 5.4 % (<6.0); Total Hemoglobin (HGBA1C) 3330.0497 umol/L
[2024-04-20 14:38] LABS: Alanine Aminotransferase 26 U/L (0-31); Albumin Level 4.3 g/dL (3.5-5.0); Alkaline Phosphatase 39 U/L (39-117); Anion Gap 10 (12-20); Aspartate Amino Transferase 24 U/L (5-31); Bilirubin Total 0.5 mg/dL (0.0-1.0); Blood Urea Nitrogen 12 mg/dL (9-16); Carbon Dioxide 26 mmol/L (22-29); Chloride 107 mmol/L (96-108); Cholesterol 175 mg/dL (<200); Estimated Glomerular Filt Rate > 60; Glucose Random 94 mg/dL (60-115); HDL Cholesterol 39 mg/dL (>40); LDL Cholesterol Calculated 115 mg/dL (<100); Potassium 3.9 mmol/L (3.3-5.1); Sodium 139 mmol/L (135-145); Total Protein 7.4 g/dL (6.5-8.0); Triglycerides 108 mg/dL (<150)
[2024-04-20 14:54] LABS: Free T4 (Free Thyroxine) 1.16 ng/dL (0.71-1.85); Thyroid Stimulating Hormone 0.18 uIU/mL (0.32-4.0)
[2024-04-20 15:58] LABS: CT PCR NOT DETECTED (Not Detect.); NG PCR NOT DETECTED (Not Detect.)
[2024-04-21 08:37] LABS: HBS Num1 3.73 mIU/mL (0-7.99); HBc Num1 0.14 S/CO (0.00-0.79); HBsAGNum1 0.42 S/CO (0.00-0.99); Hepatitis B Core Antibody Nonreactive (Nonreactive); Hepatitis B Surface Antigen Negative (Negative); ~Hepatitis B Surface Antibody NONREACTIVE (Nonreactive)
[2024-04-21 13:59] LABS: HIV RNA PCR Qn Copies 97 copies/mL (NOT DETECTED); HIV RNA PCR Qn Log Copies 1.99 (NOT DETECTED)
[2024-04-24 17:58] LABS: Absolute CD3 Count 1328 cells/uL (840-3060); Absolute CD4 Count 872 cells/uL (490-1740); Absolute CD8 Count 419 cells/uL (180-1170); Absolute Lymphocytes 1705 cells/uL (850-3900); CD4 CD8 Ratio 2.08 (0.86-5.00); Percent CD3 Cells 78 % (57-85); Percent CD4 Cells 51 % (30-61); Percent CD8 Cells 25 % (12-42)
== END 2024-04-20 08:43 | disposition home or self-care (01) ==
LOC: HO.CHCLDS 08:42
PROVIDERS: Visit Provider Student in an Organized Health Care Education/Training Program
DX: Z00.00 Encounter for general adult medical examination without abnormal findings (principal); Z21 Asymptomatic human immunodeficiency virus [HIV] infection status; E03.9 Hypothyroidism, unspecified
CPT/HCPCS: 36415; 80053; 80061; 83036; 84439; 84443; 85025; 86359; 86360; 86704; 86706; 87340; 87491; 87536; 87591

== ENCOUNTER 2024-08-06 14:13 | Outpatient (REF) | payer MEDICAID, SELFPAY ==
[2024-08-11 14:58] LABS: HPV Genotype 16 Negative (Negative); HPV Genotype 18 Positive (Negative); HPV High Risk Negative (Negative)
== END 2024-08-06 14:14 | disposition home or self-care (01) ==
LOC: HO.CHCLNP 14:13
PROVIDERS: Visit Provider Advanced Practice Midwife
DX: Z21 Asymptomatic human immunodeficiency virus [HIV] infection status (principal)
CPT/HCPCS: 87626; 88112; 88175

== ENCOUNTER 2024-10-23 10:32 | Outpatient (REF) | payer MEDICAID, SELFPAY ==
--- NOTE | ~2024-10-23 | US_ITS ---
EXAMINATION: US PELVIS TRANSABDOMINAL AND TRANSVAGINAL HISTORY: postmenopausal bleeding COMPARISON: There is an is made with the prior examination dated 07/26/2023. TECHNIQUE: Transabdominal and endovaginal real-time 2D hanson-scale ultrasound was performed. FINDINGS: Uterus: The uterus is normal in size, measuring 7.4 x 3.2 x 4.4 cm. Myometrium has a normal echotexture. No fibroids are identified. Endometrium: The endometrial stripe measures 3 mm in thickness. There is a small amount of fluid in the endometrial canal. There are nabothian cysts in the cervix. Right ovary: The right ovary measures 2.0 x 1.2 x 1.5 cm. The right ovary is normal in size and echotexture. Left ovary: The left ovary measures 1.7 x 0.9 x 1.0 cm. The left ovary is normal in size and echotexture. Pelvic fluid: none. US/US pelvic and transvaginal IMPRESSION: Small amount of fluid in the endometrial canal. Otherwise unremarkable pelvic ultrasound. Electronically signed by: Carlos Davis MD 10/23/2024 11:49 AM EDT
== END 2024-10-23 10:33 | disposition home or self-care (01) ==
LOC: HO.US 10:32
PROVIDERS: Visit Provider Advanced Practice Midwife
DX: N95.0 Postmenopausal bleeding (principal)
CPT/HCPCS: 76830; 76856

== ENCOUNTER → 2024-10-23 10:34 | Outpatient (BNV) | payer MEDICAID, SELFPAY | PROVIDERS: Visit Provider Radiology Diagnostic Radiology | DX: N85.8 Other specified noninflammatory disorders of uterus (principal) | CPT/HCPCS: 76830; 76856 ==

== ENCOUNTER 2024-10-26 09:01 | Outpatient (REF) | payer MEDICAID, SELFPAY ==
[2024-10-26 11:30] LABS: MANUAL DIFF FLAG NO
[2024-10-26 11:34] LABS: Basophils Percent Auto 0.7 % (0-2); Eosinophils Absolute Auto 0.1 X10*3/uL (0.0-0.4); Eosinophils Percent Auto 1.3 % (0-4); Hematocrit 38.3 % (37.0-47.0); Hemoglobin 13.4 g/dl (12.0-16.0); Lymphocytes Absolute Auto 1.6 X10*3/uL (1.2-4.9); Lymphocytes Percent Auto 36.4 % (20-40); Mean Corpuscular Hemoglobin 31.7 pg (27.0-33.0); Mean Corpuscular Volume 90.5 fL (80.0-98.0); Mean Platelet Volume 10.1 fL (9.4-12.3); Monocytes Absolute Auto 0.4 X10*3/uL (0.1-1.2); Monocytes Percent Auto 9.6 % (2-11); Neutrophils Absolute Auto 2.3 x10*3/uL (2.0-8.3); Platelet Count 221 X10*3/uL (160-400); Red Blood Count 4.23 X10*6/uL (4.20-5.50); White Blood Count 4.5 X10*3/uL (4.8-10.8)
[2024-10-26 11:49] LABS: Alanine Aminotransferase 24 U/L (0-31); Albumin Level 4.6 g/dL (3.5-5.0); Alkaline Phosphatase 47 U/L (39-117); Anion Gap 10 (12-20); Aspartate Amino Transferase 24 U/L (5-31); Bilirubin Total 0.3 mg/dL (0.0-1.0); Blood Urea Nitrogen 17 mg/dL (9-16); Calcium 9.6 mg/dL (8.4-10.2); Carbon Dioxide 27 mmol/L (22-29); Chloride 109 mmol/L (96-108); Estimated Glomerular Filt Rate > 60; Glucose Random 103 mg/dL (60-115); Potassium 4.4 mmol/L (3.3-5.1); Sodium 142 mmol/L (135-145); Total Protein 7.4 g/dL (6.5-8.0)
[2024-10-26 11:58] LABS: ~Hepatitis B Surface Antibody REACTIVE (Nonreactive)
[2024-10-26 11:59] LABS: TSH reflex Free T4 0.33 uIU/mL (0.32-4.0)
[2024-10-26 12:11] LABS: Thyroid Stimulating Hormone 0.31 uIU/mL (0.32-4.0)
[2024-10-27 21:49] LABS: HIV RNA PCR Qn Copies NOT DETECTED copies/mL (NOT DETECTED); HIV RNA PCR Qn Log Copies NOT DETECTED (NOT DETECTED)
[2024-10-29 17:13] LABS: Absolute CD3 Count 1272 cells/uL (840-3060); Absolute CD4 Count 869 cells/uL (490-1740); Absolute CD8 Count 374 cells/uL (180-1170); Absolute Lymphocytes 1719 cells/uL (850-3900); CD4 CD8 Ratio 2.32 (0.86-5.00); Percent CD3 Cells 74 % (57-85); Percent CD4 Cells 51 % (30-61); Percent CD8 Cells 22 % (12-42)
== END 2024-10-26 09:02 | disposition home or self-care (01) ==
LOC: HO.HHCL 09:01
PROVIDERS: Family Medicine; Nurse Practitioner Primary Care; Visit Provider Student in an Organized Health Care Education/Training Program
DX: E03.9 Hypothyroidism, unspecified (principal); Z21 Asymptomatic human immunodeficiency virus [HIV] infection status
CPT/HCPCS: 36415; 80053; 84443; 85025; 86359; 86360; 86706; 87536

== ENCOUNTER 2024-10-29 09:24 | Outpatient (AMB) | payer MEDICAID, SELFPAY ==
--- NOTE | 2024-10-29 09:33 | MHC.OFFVIS ---
Vital Signs 10/29/24 09:42 Height 5 ft 3 in Weight 160 lb BMI 28.3 Intake Visit Reasons: PMB Intake Note: Per patient has not had a period in about 15 years. Has not had a mammo this year yet. Left breast lump noticed x3 weeks ago, no pain. Landscape Gardener: Landscape Gardener Present (Mouna) Accompanied by: Self / Same As Patient Allergies No Known Allergies (No Known Allergies*) Allergy (Verified 10/29/24 09:41) Is last menstrual period known: No Post menopausal: Yes Patient : No HPI Comments Details: The patient is presenting complaining of recurrent episodes of postmenopausal bleeding over the last six-months. The patient has been on Estring since 11/04 pelvic ultrasound showed the following: Uterus: The uterus is normal in size, measuring 7.4 x 3.2 x 4.4 cm. Myometrium has a normal echotexture. No fibroids are identified. Endometrium: The endometrial stripe measures 3 mm in thickness. There is a small amount of fluid in the endometrial canal. There are nabothian cysts in the cervix. Right ovary: The right ovary measures 2.0 x 1.2 x 1.5 cm. The right ovary is normal in size and echotexture. Left ovary: The left ovary measures 1.7 x 0.9 x 1.0 cm. The left ovary is normal in size and echotexture. Pelvic fluid: none. Last co testing in 08/04 was ascus/HPV 18 positive Last mammogram was in 08/03 was BI-RADS 1 [facility] Medical History HIV (human immunodeficiency virus infection) Hypothyroidism Surgical History H/O tubal ligation Previous section Social History Household Members: Spouse Patient : No Female Reproductive History Menstrual Age of Menarche: 12 control method: none Total pregnancies: 4 Full term: 3 Ab spontaneous: 1 Date of last pap smear: 08/06/24 (+HPV ) History of abnormal pap smear: No Date of Mammogram: 07/25/24 (bi rad 1) Review of Systems Const All systems reviewed & are unremarkable except as noted in HPI and below Physical Exam Vital Signs: BMI result Body Mass Index 28.3 General: Yes no CVA tenderness External Female Exam: normal external appearance and normal appearance of the urethra Speculum Exam - Vagina: normal appearance of the vagina, normal palpation, no lesions and no masses Speculum Exam - Cervix: normal appearance of the cervix, normal palpation, no lesions, no masses and nontender Bimanual exam- vagina & uterus: normal bimanual exam, normal palpation, uterine size normal, normal palpation, uterine shape normal, No Cervical tenderness present and non-tender Bimanual Exam- Adnexa, other: normal adnexae Back/Spine/Pelvis Back: no CVA tenderness Office Procedures Colposcopy Colposcopy: Pre-Procedure Counseling: Before beginning the procedure, I conducted comprehensive counseling with the patient. We thoroughly discussed the procedure itself, including its details, alternatives, and all associated risks. This included but not limited to the following complications such as bleeding, infection, and injury to the vagina, bladder, and vessels, as well as the potential need for transfusion with all its associated risks. Subsequently, the patient sign the consent. Pap smear result: LSIL. Procedure: During the procedure, the following steps were performed: A speculum was inserted, and acetic acid was applied. Colposcopy was conducted, allowing visualization of the transformation zone. Acetowhite lesions were identified at the 3+4+6+12 o'clock position. Cervical biopsies were obtained from the 3+4+6+12 o'clock position, followed by an endocervical curettage (ECC). Vaginoscopy of the upper vagina revealed no evidence of aceto-white lesions. Hemostasis was achieved using Monsel solution, and the patient tolerated the procedure well. Post-Procedure Instructions: The patient was advised to promptly contact the office or the after hours answering service or go to the emergency room if experiencing a temperature exceeding 100.4?F, abdominal pain, nausea/vomiting, or bleeding. Additionally, the patient was instructed to abstain from vaginal intercourse and bathtub use. The patient confirmed understanding of these instructions. Discharge Instructions: The patient was instructed to schedule a follow-up appointment in 2 weeks for further evaluation and management. Please note that this note was generated using a voice recognition program, and errors may have occurred during tracer lathe set up operator. 01005-Fxjgtqkyn of cervix including upper vagina with biopsy and ECC Procedure code (CPT) selection complete Endometrial Biopsy Details: The patient was counseled regarding the indication and benefits of endometrial sampling to rule out endometrial pathology including not limited to endometrial hyperplasia or endometrial cancer and others; The alternatives (Either do nothing vs. hysteroscopy D&C) & the risks were discussed with the patient including but not limited: pain, uterine perforation, bleeding, infection, possible injury to bladder, bowel, ureter, possible need for blood transfusion with all its possible risks. The patient verbalized understanding all questions answered and signed consent. The patient was placed into the dorsal lithotomy position; a speculum was inserted in the vagina. Using aseptic technique for the procedure, the cervix was cleansed with Betadine. The anterior lip of the cervix was grasped with a single tooth tenaculum. The uterus was sounded to 3 cm , there was obstruction at the internal os, attempted cervical dilatation but the patient could not tolerate the pain, and the procedure was aborted. Tissues samples were not obtained The patient was discharged in good condition with the following instructions: Nothing in the vagina until the bleeding stops. No sex until the bleeding stops, to call if any of the following occurs: fever (>100.4), flu-like symptoms, abdominal pain, heavy bleeding, four smelling vaginal discharge. The patient was instructed to schedule a Follow up appointment in 1 week to discuss pathology results of the cervical biopsy and treatment options and schedule hysteroscopy D&C possible polypectomy/myomectomy as next step being endometrial sampling. This note was generated with a voice recognition program. Some errors may have been overlooked during the review of this note. Sometimes these errors may affect the content or meaning of a given sentence. 85438-Lgglchwavzj Biopsy Assessment & Plan Assessment & Plan (1) ASCUS with positive high risk HPV cervical: Comment: HPV 18 positive HIV positive Code(s): R87.610 - Atypical squamous cells of undetermined significance on cytologic smear of cervix (ASC-US); R87.810 - Cervical high risk human papillomavirus (HPV) DNA test positive Category: Medical Plan: Discussed with the patient the result of her abnormal pap, its significance, risk of progression, persistence, and regression. the false positive/negative rate of a Pap smear as a screening test in detecting cervical cancer and the indication for a diagnostic test -colposcopy, biopsy, endocervical curettage. The patient verbalized understanding and agreed with the plan, all questions answered. Colposcopy, biopsy /ECC done, see procedure note (2) Postmenopausal bleeding: Comment: Recurrent Code(s): N95.0 - Postmenopausal bleeding Category: Medical Plan: Discussed with the patient the pelvic ultrasound findings, the endometrial stripe thickenss measured by ultrasound was 3 mm. The negative predictive value, positive predictive value, Sensitivity, specificity of using ultrasound measurement of endometrial stripe to detecting endometrial pathology including hyperplasia , polyp or cancer were discussed with the patient. Since the patient had recurrent episodes of vaginal bleeding, Recommended to the patient that the next step is an endometrial sampling via hysteroscopy D&C possible polypectomy versus endometrial biopsy to r/o endometrial pathology including hyperplasia or cancer. All the pros and cons risks and benefits of each approach were discussed with the patient, endometrial biopsy being less invasive, office procedure with less sensitivity and inability diagnose a polyp and removal versus hysteroscopy done under anesthesia more invasive more sensitive to endometrial cancer and possibility of diagnosing and endometrial polyp with the possibility of polypectomy. All questions were answered pt verbalized understanding and decided to proceed with endometrial biopsy. EMB attempted but could not be tolerated by the patient, next step is to proceed with hysteroscopy D&C possible polypectomy/myomectomy. Instructions given the patient to schedule preop visit within a week. Orders: Orders MM tomosynthesis screening BI Today Z12.31 - Encounter for screening mammogram for malignant neoplasm of breast AMB Colposcopy Today R87.610 - Atypical squamous cells of undetermined significance on cytologic smear of cervix (ASC-US), R87.810 - Cervical high risk human papillomavirus (HPV) DNA test positive AMB Endometrial Biopsy Today N95.0 - Postmenopausal bleeding Coding Level of Care Code New Pt Level 3 (06326) Procedure Only Diagnoses ASCUS with positive high risk HPV cervical R87.610; R87.810 Postmenopausal bleeding N95.0 CPT Codes Colposcopy - CPT: 95907-Iptaxhecb of cervix including upper vagina with biopsy and ECC ([id number]) Endometrial Biopsy - CPT: 64798-Ckxyqlzznez Biopsy ([id number])
[2024-10-29 09:42] VITALS: BMI 28.3
== END 2024-10-29 10:34 | disposition home or self-care (01) ==
LOC: HO.HWS 09:24
PROVIDERS: Visit Provider Obstetrics & Gynecology
DX: R87.610 Atypical squamous cells of undetermined significance on cytologic smear of cervix (ASC-US) (principal); R87.810 Cervical high risk human papillomavirus (HPV) DNA test positive; N95.0 Postmenopausal bleeding
CPT/HCPCS: 57454; 58110; 99203

== ENCOUNTER 2024-10-29 09:24 | Outpatient (REF) | payer MEDICAID, SELFPAY | END 2024-10-29 09:25 | disposition home or self-care (01) | LOC: HO.LNP 09:24 | PROVIDERS: Visit Provider Obstetrics & Gynecology | DX: R87.810 Cervical high risk human papillomavirus (HPV) DNA test positive (principal); R87.610 Atypical squamous cells of undetermined significance on cytologic smear of cervix (ASC-US); N95.0 Postmenopausal bleeding; Z12.31 Encounter for screening mammogram for malignant neoplasm of breast | CPT/HCPCS: 57454; 58110; 88305; 88341; 88342; 99202 ==

== ENCOUNTER 2024-11-16 08:31 | Outpatient (REF) | payer MEDICAID, SELFPAY ==
--- OUTSIDE RECORDS SUMMARY | 2024-11-16 08:41 | XMS_ITS | Patient Health Record ---
Author Organization [facility] Address [address] [place] [address] Care Team Providers Care Bundle Tier Name Role Phone Yane Stauffer MD, Vasiliy Primary Care Provide r Carlos Mcconnell Unavailable [phone] Reason For Referral No Information Medications Medication SIG (Take, Route, Fr equency, Duration) Notes Start Date End Date Status Reyataz 300mg Active Epzicom 600mg Active Synthroid 88mg Activ e Bentyl 10 MG 1-2 capsules Orally Q 6 hours prn abdominal pain/cramps for 30 day(s) 03/13/2013 Active Norvir 100mg Active Social History Tobacco Use: Social History Observation Description Date Details (start date - stop date) Never Smoker NA - NA Tobacco Use/Smoking Question Answer Notes Patient is a nonsmoker Alcohol Screen Question Answer Notes Did you have a drink containing alcohol in the p ast year? No Points 0 Interpretation Negative Section Notes: Nonsmoker; no significant am ounts of alcohol Nonsmoker; no significant am ounts of alcohol Problems Problem Type SNOMED Code ICD Code Onset Dates Problem Status W/U Status Risk Notes Problem Esophageal reflux (922209784) Esophageal reflux (530.81) Active confirmed Problem Irritable bowel syndrome (00323931) Irritable bowel syndrome (564.1) Active confirmed Problem Epigastric pain (36254910) Abdominal pain, epigastric (789.06) Active confirmed Problem Constipation (564.00) Active confirmed Plan Of Treatment No Information Insurance Providers Payer Name Payer Address Payer Phone Subscriber Number Group Number Insured Name Patient Relationship to Insured Coverage Start Date Coverage End Date [facility] [address] [address] [place], [place] [id number] LINDSEY HENSON Self - patient is the insured MEDICAID OF [facility] [address] [place] [address] [phone] [id number] LINDSEY HENSON Self - patient is the insured Medical (General) History Medical History History ICD Code Chronic Hep C-liver biopsy i n 2004 with Gr 3/4 hepatitis, and Stage 0/IV-Genotype 1--reports successful Rx with Dr. Hui HIV Infection Denies TX,DM,CVA,Lung disease,renal dise ase GERD Hypothyroidism Seasonal allergies Surgical History Surgery Date(Month/Year) section D & C Negative Lymph node biopsy
== END 2024-11-16 08:32 | disposition home or self-care (01) ==
LOC: HO.MAMMO 08:31
PROVIDERS: PCP Student in an Organized Health Care Education/Training Program; Visit Provider Obstetrics & Gynecology
DX: Z12.31 Encounter for screening mammogram for malignant neoplasm of breast (principal); N87.0 Mild cervical dysplasia; N95.0 Postmenopausal bleeding; N63.24 Unspecified lump in the left breast, lower inner quadrant
CPT/HCPCS: 99212

== ENCOUNTER 2024-11-16 11:38 | Outpatient (AMB) | payer MEDICAID, SELFPAY ==
[2024-11-16 11:58] VITALS: BMI 28.3
--- NOTE | 2024-11-16 11:58 | MHC.OFFVIS ---
Vital Signs 11/16/24 11:58 Height 5 ft 3 in Weight 160 lb BMI 28.3 Intake Visit Reasons: colpo results/hysteroscopy pre op Microphone Boom Operator Required: No Information Interpreted: non-clinical & clinical Enrollment Services Dean: Enrollment Services Dean Present (Bertha Carrdeanne IRAHETA) Accompanied by: Self / Same As Patient Allergies No Known Allergies (No Known Allergies*) Allergy (Verified 11/16/24 12:04) Is last menstrual period known: Yes Last menstrual period: 03/10/20 Post menopausal: No Patient : No Do you need a note to return to daycare/school/sports/work: Yes (for surgery on saturday) HPI Comments Details: Presenting post colpo for follow-up. The patient is doing well with no complaints. Complaining of left breast lump. The pathology showed the following: A. Endocervix, curettage: Endocervical glandular epithelium, scant squamous epithelium and strips of benign endometrium; negative for dysplasia. B. Cervix, 3:00, biopsy: Squamous mucosa with marked inflammation and reactive changes, and scant endocervical glandular epithelium; negative for dysplasia. C. Cervix, 4:00, biopsy: Squamous mucosa with marked inflammation and reactive changes; negative for dysplasia; no endocervical glandular component present. D. Cervix, 6:00, biopsy: Endocervical glandular mucosa with scant squamous mucosa with marked inflammation and reactive changes; negative for dysplasia. E. Cervix, 12:00, biopsy: Squamous and endocervical glandular mucosa with marked inflammation and focal squamous atypia (see comment). Comment: (E): The atypia in this biopsy is similar to the atypia in the patient's previous Pap test ([id number]), and is insufficient for an unequivocal diagnosis of low grade dysplasia at this time. There is no evidence of high grade dysplasia Pelvic ultrasound done in 11/04 showed the following: Uterus: The uterus is normal in size, measuring 7.4 x 3.2 x 4.4 cm. Myometrium has a normal echotexture. No fibroids are identified. Endometrium: The endometrial stripe measures 3 mm in thickness. There is a small amount of fluid in the endometrial canal. There are nabothian cysts in the cervix. Right ovary: The right ovary measures 2.0 x 1.2 x 1.5 cm. The right ovary is normal in size and echotexture. Left ovary: The left ovary measures 1.7 x 0.9 x 1.0 cm. The left ovary is normal in size and echotexture. Pelvic fluid: none. Last mammogram in 08/03 was BI-RADS 1 PFSH Medical History HIV (human immunodeficiency virus infection) Hypothyroidism Surgical History H/O tubal ligation Previous section Social History Household Members: Spouse Female Reproductive History Menstrual Age of Menarche: 12 Date of last menstrual period: 03/10/20 Total pregnancies: 2 Full term: 2 Review of Systems Card Reports as per HPI and Reports no additional complaints Resp Reports as per HPI and Reports no additional complaints GI Reports as per HPI and Reports no additional complaints Reports as per HPI Physical Exam Vital Signs: BMI result Body Mass Index 28.3 Const General: cooperative, healthy appearing and comfortable Chest Chest palpation & inspection: normal inspection of the chest and normal palpation of entire chest wall Breast/axilla inspection: inspection of breasts abnormal (Right breast wnl, left breast 2 cm lump 7 cm from the nipple at 7 o'clock) and normal inspection of the axillae Breast/axilla palpation: normal palpation of the breasts, normal palpation of the axillae and no axillary lymphadenopathy Resp Effort & Inspection: normal respiratory effort Auscultation: clear to auscultation bilaterally Percussion: percussion normal Cardio Palpation: normal PMI Rate: regular rate Rhythm: regular rhythm Heart sounds: no murmurs and no rubs Peripheral pulses: Peripheral pulses 2+ throughout GI Inspection: Yes normal to inspection Palpation (GI): Soft to palpation, nontender, no guarding, not rigid and No hepatosplenomegaly present Percussion: Yes normal to percussion Auscultation: normal bowel sounds Rectal Exam - Female: deferred Assessment & Plan Assessment & Plan (1) Mild dysplasia of cervix (ABBEY I): Comment: Pathology a 12:00 biopsy Insufficient for low-grade dysplasia Code(s): N87.0 - Mild cervical dysplasia Category: Medical Plan: Discussed with the patient the pathology results of the colposcopy biopsies & endocervical curettage ( ? mild dysplasia-ABBEY 1). Discussed with the patient the sensitivity specificity, positive and negative predictive value in detecting cervical cancer in addition discussed the regression, persistence and progression rates. Recommended co-testing in 12 months, if cytology and or HPV are abnormal will proceed was colposcopy biopsy and endocervical curettage, if lesions gets worse or stays persistent for 2 years will proceed with loop electric excision procedure. Instructions given to the patient to schedule a co test appointment in 1 year. All questions answered the patient verbalized understanding. (2) Postmenopausal bleeding: Comment: Recurrent Code(s): N95.0 - Postmenopausal bleeding Category: Medical Plan: EMB attempted was aborted because the patient could not tolerate the procedure last visit. Recommended to the patient that the next step is an endometrial sampling via hysteroscopy D&C possible polypectomy versus endometrial biopsy to r/o endometrial pathology including hyperplasia or cancer. All the pros and cons risks and benefits of each approach were discussed with the patient, endometrial biopsy being less invasive, office procedure with less sensitivity and inability diagnose a polyp and removal versus hysteroscopy done under anesthesia more invasive more sensitive to endometrial cancer and possibility of diagnosing and endometrial polyp with the possibility of polypectomy. All questions were answered pt verbalized understanding and decided to proceed with endometrial biopsy, EMB attended by aborted because the patient has pain. The patient decided to proceed with hysteroscopy D&C polypectomy myomectomy. Discussed with the patient the procedure , all benefits and risks including but not limited to inability to complete the procedure , insufficient endometrial tissue for a complete evaluation of the endometrial cavity , bleeding, infection, possible need for blood transfusion with all its risk ( HIV,syphilis, Hepatitis, anaphylaxis shock, others..), injury to bladder, rectum, possible need for laparoscopy/laparotomy or hysterectomy. The patient verbalized understanding and signed the consent. Instructions given the patient to stay NPO after midnight the day prior to the procedure and to take only the specific medication (s) discussed the morning of the surgical procedure and to schedule a 2 week postoperative appointment (3) Breast lump on left side at 7 o'clock position: Comment: 7 cm from the nipple, 2 cm in size at 7 o'clock Code(s): N63.24 - Unspecified lump in the left breast, lower inner quadrant Category: Medical Plan: Discussed with the patient the finding on Breast exam (breast lump) .The differential diagnosis includes but not limited to lump/cyst/pre cancer/cancer or dense breast tissue. The work up includes breast US and diagnostic mammogram and referred the patient for surgical breast consult. Orders: Orders MM tomosynthesis diagnostic BI Today N63.24 - Unspecified lump in the left breast, lower inner quadrant US breast LT limited Today N63.24 - Unspecified lump in the left breast, lower inner quadrant Referrals General Surgery Referral N63.24 - Unspecified lump in the left breast, lower inner quadrant Coding Level of Care Code Est Pt Level 3 (95806) Diagnoses Mild dysplasia of cervix (ABBEY I) N87.0 Postmenopausal bleeding N95.0 Breast lump on left side at 7 o'clock position N63.24
== END 2024-11-16 12:45 | disposition home or self-care (01) ==
LOC: HO.HWS 11:39
PROVIDERS: Visit Provider Obstetrics & Gynecology
DX: N87.0 Mild cervical dysplasia (principal); N95.0 Postmenopausal bleeding; N63.24 Unspecified lump in the left breast, lower inner quadrant
CPT/HCPCS: 99213

== ENCOUNTER 2024-11-27 06:43 | Day surgery (SDC) | payer MEDICAID, SELFPAY ==
--- OUTSIDE RECORDS SUMMARY | 2024-11-23 15:57 | XMS_ITS | Patient Health Record ---
Author Organization [facility] Address [address] [place] [address] Care Team Providers Care Insurance Risk Analyst Name Role Phone Yane Stauffer MD, Vasiliy Primary Care Provide r Carlos Mcconnell Unavailable [phone] Reason For Referral No Information Medications Medication [...] W/U Status Risk Notes Problem Esophageal reflux (339573404) Esophageal reflux (530.81) Active confirmed Problem Irritable bowel syndrome (15697614) Irritable bowel syndrome (564.1) Active confirmed Problem Epigastric pain (62062343) Abdominal pain, epigastric (789.06) Active confirmed Problem Constipation (03931182) Constipation (564.00) Active confirmed Plan Of Treatment No Information Insurance Providers Payer Name Payer Address Payer Phone Subscriber Number Group Number Insured Name Patient Relationship to Insured Coverage Start Date Coverage End Date [facility] [address] [address] [place], [place] [id number] [phone] [id number] LINDSEY HENSON Self - patient is the insured [id number] [address] [place] [id number] [phone] [id number] LINDSEY HENSON Self - patient is the insured Medical (General) History Medical History History ICD Code Chronic Hep C-liver biopsy i n 2004 with Gr 3/4 hepatitis, and Stage 0/IV-Genotype 1--reports successful Rx with Dr. Hui HIV Infection Denies AL,DM,CVA,Lung disease,renal dise ase GERD Hypothyroidism Seasonal allergies Surgical History Surgery Date(Month/Year) section D & C Negative Lymph node biopsy
[2024-11-24 12:35] VITALS: BMI 28.3
[2024-11-27] VITALS (7 sets, daily range): BP systolic 96–128; BP diastolic 51–62; PULSE 58–70; RESP 16–18; TEMP 36.1–36.2; O2SAT 96–99; BMI 28.3
[2024-11-27] MEDS: Lactated Ringers 1,000 ML 100 ML IVCONT (07:51)
--- NOTE | 2024-11-27 08:27 | HO.ANESPROP2 ---
Documented by User: Hui Kothari NP 11/25/24 13:13 HPI - Anesthesia Eval Consult details Narrative: 54yo F for D&C Hysteroscopy possible myomectomy,possible polypectomy PMFSH Active Problems Active Problems: All Active Problems Breast lump on left side at 7 o'clock position (Acute) Mild dysplasia of cervix (ABBEY I) (Acute) Postmenopausal bleeding (Acute) ASCUS with positive high risk HPV cervical (Acute) Past Medical History Medical History HIV (human immunodeficiency virus infection) Hypothyroidism Surgical History Surgical History H/O tubal ligation Previous section Social History Social History Household Members: Spouse Patient Tobacco Use Status: Never used Tobacco Use of substances other than those prescribed or required for medical reasons: No Advance Directives: No Advance Directives Information Provided: Yes Patient : No Meds Allergies Allergy/AdvReac Type Severity Reaction Status Date / Time No Known Allergies (No Known Allergy Verified 11/16/24 12:04 Allergies*) Home Medications ?Medication ?Instructions ?Recorded ?Confirmed ?Last Taken ?Type bictegravir 50 mg-emtricitabine 1 tab PO DAILY 10/29/24 11/27/24 11/26/24 14:00 History 200 mg-tenofovir alafenam 25 mg tablet (Biktarvy) levothyroxine 88 mcg tablet 88 mcg PO DAILY 10/29/24 11/27/24 11/26/24 07:00 History paroxetine HCl 10 mg tablet 10 mg PO QAM 10/29/24 11/24/24 Unknown History Exam Height,Weight and Vital Signs: Height 5 ft 3 in Weight 72.575 kg Pertinent Lab Results Pertinent Lab Results: Laboratory Tests 10/26/24 09:04 WBC 4.5 L Hgb 13.4 Hct 38.3 Plt Count 221 Sodium 142 Potassium 4.4 Chloride 109 H Carbon Dioxide 27 BUN 17 H Creatinine 0.77 Assessment and Plan Assessment Anesthesia Assessment: Chart Reviewed Documented by User: Marcella Shepard DO 11/27/24 08:28 [facility] Past Medical History Medical History HIV (human immunodeficiency virus infection) Hypothyroidism Family History Family history of problems with anesthesia: No Surgical History Surgical History H/O tubal ligation Previous section History of Problems with Anesthesia: No Social History Social History Household Members: Spouse Patient Tobacco Use Status: Never used Tobacco Use of substances other than those prescribed or required for medical reasons: No Advance Directives: No Advance Directives Information Provided: Yes Patient : No Meds Allergies Allergy/AdvReac Type Severity Reaction Status Date / Time No Known Allergies (No Known Allergy Verified 11/16/24 12:04 Allergies*) Home Medications ?Medication ?Instructions ?Recorded ?Confirmed ?Last Taken ?Type bictegravir 50 mg-emtricitabine 1 tab PO DAILY 10/29/24 11/27/24 11/26/24 14:00 History 200 mg-tenofovir alafenam 25 mg tablet (Biktarvy) levothyroxine 88 mcg tablet 88 mcg PO DAILY 10/29/24 11/27/24 11/26/24 07:00 History paroxetine HCl 10 mg tablet 10 mg PO QAM 10/29/24 11/24/24 Unknown History Exam Exam Date and Time: 11/27/24 0825 Height,Weight and Vital Signs: Height 5 ft 3 in Weight 72.575 kg Vital Signs Temperature 97.2 F 11/27/24 07:48 Pulse Rate 62 11/27/24 07:48 Respiratory Rate 16 11/27/24 07:48 Blood Pressure 117/62 11/27/24 07:48 Pulse Oximetry 97 11/27/24 07:48 Oxygen Delivery Method Room Air 11/27/24 07:48 Temperature 97.2 F 11/27/24 07:48 Pulse Rate 62 11/27/24 07:48 Respiratory Rate 16 11/27/24 07:48 Blood Pressure 117/62 11/27/24 07:48 Pulse Oximetry 97 11/27/24 07:48 Oxygen Delivery Method Room Air 11/27/24 07:48 Airway Mallampati Class: II TM Dist: >3cm Neck ROM: Full Loose/Missing/Broken Teeth: No (patient denies any loose or broken teeth) Heart: S1S2 Lungs: CTAB Assessment and Plan Assessment Anesthesia Assessment: Anesthesia Plan Discussed and Chart Reviewed Final Anesthetic Review Family History of Problems with Anesthesia: No History of Problems with Anesthesia: No NPO: Yes ASA Class: II Final Preanesthetic Review: No Changes in Pt Med Stat, Meds/Allgs Chart Reviewed, Consent Obtained/Reviewed and Anes Risks/Benef Reviewed Patient Risk: Low Procedure Risk: Low Anesthetic Plan Anesthetic Plan: GA and Agree w/ Assess. and Plan Disposition: Standard PACU
--- NOTE | 2024-11-27 09:11 | MHC.SHP ---
Pre-Procedural Eval Section A - 24 Hr Update-Section A only Date of Service: 11/27/24 The patient is an INPATIENT: No Changes since office visit: No Cold of Flu in the past 2 weeks, No New Medical Problems, No Changes in Medication and No Patient answered all questions The patient has been examined within 24 hours of the surgical procedure. The History & Physical has been completed within 30 days and I have reviewed it.: Yes Section B - Complete if H&P > 30 days Chief Complaint: Postmenopausal bleeding,Mild cervical dysplasia Allergies: Allergies Allergy/AdvReac Type Severity Reaction Status Date / Time No Known Allergies (No Known Allergy Verified 11/16/24 12:04 Allergies*) Plan Diagnosis/Plan: Unchanged I have reviewed the history and physical and performed a pertinent physical examination on my patient. No changes have occurred unless specified. Time Spent With Patient Time: Total time managing care of this patient today ____ minutes.
--- NOTE | 2024-11-27 09:37 | P.BOP_ITS ---
Brief Operative Note Date of Service: 11/27/24 Pre-op diagnosis: Postmenopausal bleeding Post-op diagnosis: same (Normal endometrial cavity) Procedure: Hysteroscopy D&C Surgeon: Júnior Landrum MD Anesthesia: GLMA Was an Visual Presentation Manager used for this Procedure?: No Estimated blood loss (mL): 0 Pathology: other (Endometrial Scrapping.) Condition: stable Disposition: PACU
--- NOTE | 2024-11-27 09:38 | P.OP_ITS ---
Operative Note Operative Note Date of Service: 11/27/24 Narrative: Preop Diagnosis: Post Menopausal bleeding Operation: Diagnostic Hysteroscopy, Dilataion & Curettage Post Op Diagnosis: Normal endometrial cavity QBL: Minimal Anesthesia: GLMA Surgeon: Júnior Landrum MD Roller Bearing Inspector: None Complication: None Pathology: Endometrial Scrapings Procedure: The patient was put in the dorsal lithotomy position, scrubbed, and draped in the usual manner. A sterile speculum was inserted in the patient's vagina. The anterior lip of the cervix was grasped with a single tooth tenaculum. The cervix was dilated up to 5 mm, then the scope was inserted in the patient's uterus. Inspection revealed Normal endometrial cavity. The Myosure Reach device was used; the scope was removed from the endometrial cavity , sharp curettings was carried on with minimal to moderate amount of tissues retrieved. At the end of the procedure, all instruments were taken out of the patient uterine and vaginal cavity. The single tooth tenaculum was removed and homeostasis was assured using pressure,. The patient tolerated the procedure well and was transferred to the PACU in a stable condition.
== END 2024-11-27 10:50 | disposition home or self-care (01) ==
PROVIDERS: Visit Provider Obstetrics & Gynecology
PROC: 0UDB8ZZ Extraction of Endometrium, Via Natural or Artificial Opening Endoscopic (ICD-10-PCS; CPT 58558; principal; 2024-11-27 09:00)
DX: N95.0 Postmenopausal bleeding (principal); N87.0 Mild cervical dysplasia; N63.24 Unspecified lump in the left breast, lower inner quadrant; B20 Human immunodeficiency virus [HIV] disease; E03.9 Hypothyroidism, unspecified; Z98.51 Tubal ligation status; Z79.899 Other long term (current) drug therapy
CPT/HCPCS: 58558; 88305; J1100; J1885; J2003; J2250; J2405; J2704; J3010

== ENCOUNTER → 2024-11-27 06:43 | Outpatient (BNV) | payer MEDICAID, SELFPAY | PROVIDERS: Visit Provider Obstetrics & Gynecology | DX: N95.0 Postmenopausal bleeding (principal) | CPT/HCPCS: 58558 ==

== ENCOUNTER 2024-12-10 10:11 | Outpatient (AMB) | payer MEDICAID, SELFPAY ==
--- NOTE | 2024-12-10 10:19 | MHC.OFFVIS ---
Vital Signs 12/10/24 10:22 Height 5 ft 3 in Weight 160 lb BMI 28.3 Intake Visit Reasons: post op Allergies No Known Allergies (No Known Allergies*) Allergy (Verified 11/16/24 12:04) HPI Comments Details: The patient is presenting post hysteroscopy D&C no complaints minimal vaginal bleeding no feverishness chills or abdominal pain. The pathology showed the following: Endometrium, curettage: Predominantly blood with fragments of benign endocervical glandular mucosa with focal hemosiderin, scant benign squamous epithelium, and rare fragments of benign endometrium; insufficient for endometrial evaluation. [facility] Medical History HIV (human immunodeficiency virus infection) Hypothyroidism Surgical History H/O tubal ligation Previous section Social History Household Members: Spouse Patient Tobacco Use Status: Never used Tobacco Female Reproductive History Menstrual Age of Menarche: 12 Physical Exam Vital Signs: BMI result Body Mass Index 28.3 Office Procedures Endometrial Biopsy Details: The patient was counseled regarding the indication and benefits of endometrial sampling to rule out endometrial pathology including not limited to endometrial hyperplasia or endometrial cancer and others; The alternatives (Either do nothing vs. hysteroscopy D&C) & the risks were discussed with the patient including but not limited: pain, uterine perforation, bleeding, infection, possible injury to bladder, bowel, ureter, possible need for blood transfusion with all its possible risks. The patient verbalized understanding all questions answered and signed consent. The patient was placed into the dorsal lithotomy position; a speculum was inserted in the vagina. Using aseptic technique for the procedure, the cervix was cleansed with Betadine. The anterior lip of the cervix was grasped with a single tooth tenaculum. The uterus was sounded to 7 cm with a 4 mm Pipelle was used. Tissues samples were obtained and placed in formalin, in a patient labeled container and sent to the pathology department. At the end of the procedure, there was minimal bleeding noted The patient tolerated the procedure well and was discharged in good condition with the following instructions: Nothing in the vagina until the bleeding stops. No sex until the bleeding stops, to call if any of the following occurs: fever (>100.4), flu-like symptoms, abdominal pain, heavy bleeding, four smelling vaginal discharge. The patient was instructed to schedule a Follow up appointment in 2 weeks to discuss pathology results of the biopsy and treatment options. This note was generated with a voice recognition program. Some errors may have been overlooked during the review of this note. Sometimes these errors may affect the content or meaning of a given sentence. [id number]-[id number] Biopsy Assessment & Plan Assessment & Plan (1) Postmenopausal bleeding: Comment: Recurrent Code(s): N95.0 - Postmenopausal bleeding Category: Medical Plan: Discussed with the patient the intraoperative finding, pathology results being insufficient for endometrial evaluation, explained to the patient the endometrial pathology including hyperplasia or malignancy has not been ruled out therefore recommended repeat endometrial sampling. EMB done, see procedure note Orders: Orders AMB Endometrial Biopsy Today N95.0 - Postmenopausal bleeding Coding Level of Care Code Procedure Only Diagnoses Postmenopausal bleeding N95.0 CPT Codes Endometrial Biopsy - CPT: 51344-[id number] Biopsy ([id number])
[2024-12-10 10:22] VITALS: BMI 28.3
--- OUTSIDE RECORDS SUMMARY | 2024-12-10 10:55 | XMS_ITS | Patient Health Record ---
Author Organization [facility] Address [address] [place] [address] Care Team Providers Care Administrative Accountant Name Role Phone Yane Stauffer MD, Vasiliy Primary Care Provide r Carlos Mcconnell Unavailable [phone] Reason For Referral No Information Medications Medication [...] W/U Status Risk Notes Problem Esophageal reflux (807895918) Esophageal reflux (530.81) Active confirmed Problem Irritable bowel syndrome (56237533) Irritable bowel syndrome (564.1) Active confirmed Problem Epigastric pain (17100722) Abdominal pain, epigastric (789.06) Active confirmed Problem Constipation (73470973) Constipation (564.00) Active confirmed Plan Of Treatment No Information Insurance Providers Payer Name Payer Address Payer Phone Subscriber Number Group Number Insured Name Patient Relationship to Insured Coverage Start Date Coverage End Date [facility] [address] [address] [place], [place] [id number] [phone] [id number] LINDSEY HENSON Self - patient is the insured MEDICAID OF [facility] [address] [place] [id number] [phone] [id number] LINDSEY HENSON Self - patient is the insured Medical (General) History Medical History History ICD Code Chronic Hep C-liver biopsy i n 2004 with Gr 3/4 hepatitis, and Stage 0/IV-Genotype 1--reports successful Rx with Dr. Hui HIV Infection Denies DE,DM,CVA,Lung disease,renal dise ase GERD Hypothyroidism Seasonal allergies Surgical History Surgery Date(Month/Year) section D & C Negative Lymph node biopsy
== END 2024-12-10 10:52 | disposition home or self-care (01) ==
LOC: HO.HWS 10:11
PROVIDERS: PCP Student in an Organized Health Care Education/Training Program; Visit Provider Obstetrics & Gynecology
DX: N95.0 Postmenopausal bleeding (principal)
CPT/HCPCS: 58100

== ENCOUNTER 2024-12-10 10:11 | Outpatient (REF) | payer MEDICAID, SELFPAY | END 2024-12-10 10:12 | disposition home or self-care (01) | LOC: HO.LNP 10:11 | PROVIDERS: PCP Student in an Organized Health Care Education/Training Program; Visit Provider Obstetrics & Gynecology | DX: N95.0 Postmenopausal bleeding (principal); Z98.51 Tubal ligation status | CPT/HCPCS: 58100; 88305 ==

== ENCOUNTER 2024-12-21 08:04 | Outpatient (REF) | payer MEDICAID, SELFPAY ==
--- NOTE | ~2024-12-21 | MM_ITS ---
EXAMINATION: MM DIAGNOSTIC DIGITAL BREAST TOMOSYNTHESIS, BILATERAL Limited left breast ultrasound. CLINICAL INFORMATION: [Palpable lump since May the area has gotten smaller. COMPARISON: Mammography: Comparison is made with relevant prior exams. TECHNIQUE: Digital breast mammography with tomosynthesis is performed in both the craniocaudal and mediolateral oblique views along with computer-aided detection (CAD). FINDINGS: There are scattered areas of fibroglandular density (ACR BI-RADS breast composition Category b). BB marker in the lower inner left breast without underlying abnormal finding at site of patient's palpable lump. There are no significant masses, abnormal calcifications, or other abnormalities. Targeted color Doppler ultrasound scanning in the lower inner left breast area of patient's palpable lump 7:00 7 cm from the nipple demonstrates an intradermal oval hypoechoic sebaceous cyst/epidermal inclusion cyst. Measuring 5 x 3 x 7 mm which correlates with the patient's palpable lump and pain. Results are provided to the patient at time of visit by the technologist. MM/MM tomosynthesis diagnostic BI IMPRESSION: Right: Negative. Left: Intradermal sebaceous cyst/epidermal inclusion cyst in the area the patient's palpable lump and pain left breast 7:00 7 cm from the nipple. Benign. Recommend clinical evaluation and follow-up. ASSESSMENT: BI-RADS BI-RADS 2 - Benign Findings RECOMMENDATION: 1 year F/U This patient's information was entered into a reminder system with a target due date for their next mammogram. Electronically signed by: Nan Hooks DO 12/21/2024 09:15 AM EDT
--- OUTSIDE RECORDS SUMMARY | 2024-12-21 08:11 | XMS_ITS | Patient Health Record ---
Author Organization [facility] Address [address] [place] [address] Care Team Providers Care Inspection Supervisor Name Role Phone Yane Stauffer MD, Vasiliy Primary Care Provide r Carlos Mcconnell Unavailable [phone] Reason For Referral No Information Medications Medication [...] W/U Status Risk Notes Problem Esophageal reflux (037051232) Esophageal reflux (530.81) Active confirmed Problem Irritable bowel syndrome (17802834) Irritable bowel syndrome (564.1) Active confirmed Problem Epigastric pain (26879066) Abdominal pain, epigastric (789.06) Active confirmed Problem Constipation (564.00) Active confirmed Plan Of Treatment No Information Insurance Providers Payer Name Payer Address Payer Phone Subscriber Number Group Number Insured Name Patient Relationship to Insured Coverage Start Date Coverage End Date [facility] [address] [address] [place], [place] [id number] LINDSEY HENSON Self - patient is the insured MEDICAID OF [facility] [address] [place] [address] [phone] [id number] LINDSEY HENSON Self - patient is the insured Medical (General) History Medical History History ICD Code Chronic Hep C-liver biopsy i n 2004 with Gr 3/4 hepatitis, and Stage 0/IV-Genotype 1--reports successful Rx with Dr. Hui HIV Infection Denies NM,DM,CVA,Lung disease,renal dise ase GERD Hypothyroidism Seasonal allergies Surgical History Surgery Date(Month/Year) section D & C Negative Lymph node biopsy
== END 2024-12-21 08:05 | disposition home or self-care (01) ==
LOC: HO.MAMMO 08:04
PROVIDERS: PCP Student in an Organized Health Care Education/Training Program; Visit Provider Student in an Organized Health Care Education/Training Program
DX: N63.24 Unspecified lump in the left breast, lower inner quadrant (principal)
CPT/HCPCS: 76642; 77062; 77066

== ENCOUNTER → 2024-12-21 09:00 | Outpatient (BNV) | payer MEDICAID, SELFPAY | PROVIDERS: PCP Student in an Organized Health Care Education/Training Program; Visit Provider Internal Medicine | DX: N63.24 Unspecified lump in the left breast, lower inner quadrant (principal) | CPT/HCPCS: 76642; 77062; 77066 ==

== ENCOUNTER 2024-12-22 14:05 | Outpatient (AMB) | payer MEDICAID, SELFPAY ==
--- NOTE | 2024-12-22 14:13 | MHC.OFFVIS ---
Vital Signs 12/22/24 14:30 Height 5 ft 3 in Weight 162 lb BMI 28.7 BP 129/58 L Blood Pressure Location Lt brachial Position Sitting Pulse 76 Intake Visit Reasons: lump in breast Intake Note: Patient is seen in office for evaluation of a lump on the breast. Pt c/o: left breast lump, notice on 09/2024, was bigger in size, has decrease, under the left breast, denies pain, redness, discharge, in the past had bx done (benign) same breast, denies fm hx breast cancer or prior surgeries/infections mm/us:12/21/24 Footwear Sales Leader Required: No Accompanied by: Self / Same As Patient Allergies No Known Allergies (No Known Allergies*) Allergy (Verified 12/22/24 14:27) Medication List - Last Reconciled 12/22/24 by Dariusz Howe MD mqznsplrr-vodlfotw-qtpzedr ala 50-200-25 mg (Biktarvy) 1 tab PO DAILY levothyroxine 88 mcg PO DAILY paroxetine HCl 10 mg PO QAM HPI Comments Details: 54-year-old female patient presenting for evaluation of a left breast mass. This was 1st noted in September 2024 but has subsequently decreased in size since then. The lesion is located in the lower inner portion of the breast and was initially somewhat painful but has now improved with minimal pain. A recent mammogram performed on 12/21/2024 revealed an intradermal sebaceous cysts/epidermal inclusion cyst in the area of the patient's palpable lump at the 07:00 location, 7 cm from the nipple. This was felt to be benign. No changes were noted in the right breast (BI-RADS 2). Patient's menarche was at 12. She is 4 para 3 with 1 miscarriage. Her 1st child was born when she was 18. Her last menstrual cycle was approximately 10 years ago. She denies hormone replacement therapy. Breast density reveals scattered areas of fibroglandular density (category B). She does report a previous left breast biopsy which was benign. There is no family history of breast or ovarian cancer that she is aware of. [facility] Medical History HIV (human immunodeficiency virus infection) Hypothyroidism Surgical History H/O tubal ligation Previous section Social History Household Members: Spouse Patient Tobacco Use Status: Never used Tobacco Female Reproductive History Menstrual Age of Menarche: 12 Date of menopause: 05/13/09 Total pregnancies: 4 Number of Living Children: 3 Ab spontaneous: 1 Review of Systems Const All systems reviewed & are unremarkable except as noted in HPI and below Physical Exam Const General: cooperative and no acute distress Nutritional Appearance: well nourished Orientation/consciousness: patient oriented x3 Limitations: no limitations HEENT Head: Yes normocephalic and Yes atraumatic Ears: hearing grossly normal bilaterally Chest Other: Left breast: No skin change, no nipple retraction, no nipple discharge, small superficial palpable mass located at the inframammary crease, 07:00 measuring approximately 1 cm in diameter, nontender to palpation, non fluctuant, no enlarged lymph nodes. Right breast: No skin change, no nipple retraction, no nipple discharge, no palpable mass, no enlarged lymph nodes Chest/axillae images:  1. Palpable skin cyst left breast, 07:00 Resp Effort & Inspection: normal respiratory effort, no audible wheezes, no cough and no respiratory distress Cardio Jugular venous distension: no JVD GI Inspection: Yes normal to inspection Skin Other: Warm, dry, no rash Neuro General: patient oriented x3 Extrem General: Yes no clubbing, cyanosis or edema Assessment & Plan Assessment & Plan (1) Breast lump on left side at 7 o'clock position: Comment: 7 cm from the nipple, 2 cm in size at 7 o'clock Code(s): N63.24 - Unspecified lump in the left breast, lower inner quadrant Category: Medical Plan 54-year-old female patient presenting with a epidermal inclusion cyst of the left breast located at the inframammary crease with no evidence of current infection. Examination of the cyst is approximately 1 cm in diameter in his nontender to palpation. There was no evidence of fluctuance or discharge. Mammogram reveals findings suggestive of an epidermal inclusion cyst with no other suspicious findings (BI-RADS 2). Physical findings are consistent with an epidermal inclusion cyst of the breast and she was given the option of either continued observation versus excision. She is comfortable with watching the lesion for now and is welcome to call should lesion become more symptomatic. The lesion can be removed under local anesthesia as an office procedure. She expressed understanding and agrees with the plan. Coding Level of Care Code New Pt Level 4 (64409) Diagnoses Breast lump on left side at 7 o'clock position N63.24
[2024-12-22 14:30] VITALS: BP 129/58; PULSE 76; BMI 28.7
--- OUTSIDE RECORDS SUMMARY | 2024-12-22 15:04 | XMS_ITS | Patient Health Record ---
Author Organization [facility] Address [address] [place] [address] Care Team Providers Care Fashion Marketer Name Role Phone Yane Stauffer MD, Vasiliy Primary Care Provide r Carlos Mcconnell Unavailable [phone] Reason For Referral No Information Medications Medication [...] W/U Status Risk Notes Problem Esophageal reflux (728647147) Esophageal reflux (530.81) Active confirmed Problem Irritable bowel syndrome (14841277) Irritable bowel syndrome (564.1) Active confirmed Problem Epigastric pain (23531047) Abdominal pain, epigastric (789.06) Active confirmed Problem Constipation (46203103) Constipation (564.00) Active confirmed Plan Of Treatment No Information Insurance Providers Payer Name Payer Address Payer Phone Subscriber Number Group Number Insured Name Patient Relationship to Insured Coverage Start Date Coverage End Date [facility] [address] [address] [place], [place] [id number] [phone] [id number] LINDSEY HENSON Self - patient is the insured MEDICAID OF [facility] [facility] [address] [place] [address] [phone] [id number] LINDSEY HENSON Self - patient is the insured Medical (General) History Medical History History ICD Code Chronic Hep C-liver biopsy i n 2004 with Gr 3/4 hepatitis, and Stage 0/IV-Genotype 1--reports successful Rx with Dr. Hui HIV Infection Denies [place],DM,CVA,Lung disease,renal dise ase GERD Hypothyroidism Seasonal allergies Surgical History Surgery Date(Month/Year) section D & C Negative Lymph node biopsy
== END 2024-12-22 14:43 | disposition home or self-care (01) ==
LOC: HO.HGS 14:06
PROVIDERS: PCP Student in an Organized Health Care Education/Training Program; Visit Provider Surgery
DX: N63.24 Unspecified lump in the left breast, lower inner quadrant (principal)
CPT/HCPCS: 99204

== ENCOUNTER → 2024-12-22 14:05 | Outpatient (BNVA) | payer MEDICAID, SELFPAY | PROVIDERS: PCP Student in an Organized Health Care Education/Training Program; Visit Provider Surgery | DX: N63.24 Unspecified lump in the left breast, lower inner quadrant (principal) | CPT/HCPCS: 99202 ==

== ENCOUNTER 2024-12-23 09:02 | Outpatient (AMB) | payer MEDICAID, SELFPAY ==
--- NOTE | 2024-12-23 09:02 | MHC.OFFVIS ---
Intake Visit Reasons: emb results Allergies No Known Allergies (No Known Allergies*) Allergy (Verified 12/22/24 14:27) HPI Comments Details: The patient is presenting after endometrial biopsy. The patient has no complaints, no vaginal bleeding, no feverishness chills or abdominal pain. 12/10/2024 The endometrial biopsy pathology report showed the following: Endometrium, biopsy: Few superficial strips of benign endometrium and endocervical epithelium; organizing blood clot; no atypia identified. Comment: The endometrial sampling is relatively sparse; consider repeat, as clinically appropriate. 11/27/2024 hysteroscopy D&C, the pathology showed the following: Endometrium, curettage: Predominantly blood with fragments of benign endocervical glandular mucosa with focal hemosiderin, scant benign squamous epithelium, and rare fragments of benign endometrium; insufficient for endometrial evaluation 11/16 office EMB attempted but aborted because the patient intolerance to pain 10/23/2024 ultrasound endometrial stripe 3 mm with fluid in the endometrial canal PFSH Medical History HIV (human immunodeficiency virus infection) Hypothyroidism Surgical History H/O tubal ligation Previous section Social History Household Members: Spouse Patient Tobacco Use Status: Never used Tobacco Female Reproductive History Menstrual Age of Menarche: 12 Date of menopause: 05/13/09 Review of Systems Const All systems reviewed & are unremarkable except as noted in HPI and below Reports as per HPI and Reports no additional complaints GI Reports no additional complaints Reports no additional complaints Telehealth Telehealth Telehealth Platform: Telephone Location of provider rendering services: practice address Location of patient: address on file Patient Identification confirmed using: Name, : Yes Telehealth method: video Patient verbally consented to treatment: Yes Patient verbally consented to billing insurance company: Yes Patient informed of any privacy concerns related to visit: Yes Minutes spent on Phone/Video with Pt.: 6 Assessment & Plan Assessment & Plan (1) Postmenopausal bleeding: Comment: Recurrent Code(s): N95.0 - Postmenopausal bleeding Category: Medical Plan: Discussed with the patient the results of endometrial biopsy pathology, sparse tissue .Discussed with the patient the path results and since the amount of tissue were described as spot there is a higher false reassuring rate. Recommended referral to [facility] for further management. All questions answered, the patient verbalized understanding. Instructed the patient to call our office back in case a referral appointment is not scheduled, missed or canceled so that we will assist on rescheduling another appointment, the patient verbalized understanding agreed with the plan. I spent a total of 20 minutes reviewing the chart, talking to the patient via video and documenting in the medical record. Coding Level of Care Code Tele Est Pt Level 3 (88881) Diagnoses Postmenopausal bleeding N95.0
--- OUTSIDE RECORDS SUMMARY | 2024-12-23 09:23 | XMS_ITS | Patient Health Record ---
Author Organization [facility] Address [address] [place] [address] Care Team Providers Care Certified Recreational Therapist Name Role Phone Yane Stauffer MD, Vasiliy Primary Care Provide r Carlos Mcconnell Unavailable [phone] Reason For Referral No Information Medications Medication [...] W/U Status Risk Notes Problem Esophageal reflux (206445989) Esophageal reflux (530.81) Active confirmed Problem Irritable bowel syndrome (91172978) Irritable bowel syndrome (564.1) Active confirmed Problem Epigastric pain (30597637) Abdominal pain, epigastric (789.06) Active confirmed Problem Constipation (564.00) Active confirmed Plan Of Treatment No Information Insurance Providers Payer Name Payer Address Payer Phone Subscriber Number Group Number Insured Name Patient Relationship to Insured Coverage Start Date Coverage End Date [facility] [address] [address] [place], [place] [id number] LINDSEY HENSON Self - patient is the insured MEDICAID OF [facility] [address] [place] [address] [phone] [id number] LINDSEY HENSON Self - patient is the insured Medical (General) History Medical History History ICD Code Chronic Hep C-liver biopsy i n 2004 with Gr 3/4 hepatitis, and Stage 0/IV-Genotype 1--reports successful Rx with Dr. Hui HIV Infection Denies [place],DM,CVA,Lung disease,renal dise ase GERD Hypothyroidism Seasonal allergies Surgical History Surgery Date(Month/Year) section D & C Negative Lymph node biopsy
== END 2024-12-23 10:34 | disposition home or self-care (01) ==
LOC: HO.HWS 09:02
PROVIDERS: PCP Student in an Organized Health Care Education/Training Program; Visit Provider Obstetrics & Gynecology
DX: N95.0 Postmenopausal bleeding (principal)
CPT/HCPCS: 99213

== ENCOUNTER 2025-03-30 11:13 | Outpatient (REF) | payer MEDICAID, SELFPAY ==
[2025-03-30 14:25] LABS: MANUAL DIFF FLAG NO
[2025-03-30 14:46] LABS: Hematocrit 38.2 % (37.0-47.0); Hemoglobin 12.9 g/dl (12.0-16.0); Imm Gran Abs Auto 0.01 X10*3/uL (0.00-0.03); Imm Gran Pct Auto 0.2 % (0.0-0.4); Lymphocytes Absolute Auto 1.7 X10*3/uL (1.2-4.9); Mean Corpuscular HGB Conc 33.8 g/dl (31.0-35.0); Mean Corpuscular Hemoglobin 31.4 pg (27.0-33.0); Mean Corpuscular Volume 92.9 fL (80.0-98.0); NRBC Abs Auto 0.000 X10*3/uL (0.0-0.012); NRBC Pct Auto 0.0 /100WBC (0.0-0.2); Platelet Count 218 X10*3/uL (160-400); Red Blood Count 4.11 X10*6/uL (4.20-5.50); White Blood Count 4.5 X10*3/uL (4.8-10.8)
[2025-03-30 14:49] LABS: Hemoglobin A1C 77.4873 umol/L
[2025-03-30 15:18] LABS: Alanine Aminotransferase 18 U/L (0-31); Albumin Level 4.6 g/dL (3.5-5.0); Alkaline Phosphatase 53 U/L (39-117); Anion Gap 12 (12-20); Aspartate Amino Transferase 23 U/L (5-31); Blood Urea Nitrogen 14 mg/dL (9-16); Calcium 9.3 mg/dL (8.4-10.2); Carbon Dioxide 27 mmol/L (22-29); Chloride 106 mmol/L (96-108); Cholesterol 205 mg/dL (<200); Estimated Glomerular Filt Rate > 60; HDL Cholesterol 36 mg/dL (>40); Potassium 4.6 mmol/L (3.3-5.1); Sodium 140 mmol/L (135-145); Total Protein 7.5 g/dL (6.5-8.0); Triglycerides 226 mg/dL (<150)
[2025-03-30 15:28] LABS: Free T4 (Free Thyroxine) 1.13 ng/dL (0.71-1.85); Thyroid Stimulating Hormone 0.50 uIU/mL (0.32-4.0)
[2025-03-30 15:54] LABS: CT PCR Urine NOT DETECTED (Not Detect.); NG PCR Urine NOT DETECTED (Not Detect.)
[2025-03-31 06:50] LABS: Syphilis Screen Nonreactive (Nonreactive)
[2025-03-31 07:13] LABS: HBsAGNum1 0.47 S/CO (0.00-0.99); Hepatitis B Surface Antigen Negative (Negative); ~HepC Num1 7.38 S/CO (0.00-0.79); ~Hepatitis C Antibody Reactive (Nonreactive)
[2025-03-31 20:32] LABS: HIV RNA PCR Qn Copies 31 copies/mL (NOT DETECTED); HIV RNA PCR Qn Log Copies 1.49 (NOT DETECTED)
[2025-04-02 08:23] LABS: TS Negative Control Passed; TS Panel A 0; TS Panel B 0; TS Positive Control Passed; TSpotTB Negative (Negative)
[2025-04-02 17:43] LABS: HCV Log PCR <1.18 NOT DETECTED Log IU/mL (NOT DETECTED); HepC Viral Load <15 NOT DETECTED IU/mL (NOT DETECTED)
[2025-04-04 15:58] LABS: Absolute CD3 Count 1186 cells/uL (840-3060); Absolute CD8 Count 374 cells/uL (180-1170); Percent CD3 Cells 71 % (57-85); Percent CD8 Cells 22 % (12-42)
== END 2025-03-30 11:14 | disposition home or self-care (01) ==
LOC: HO.CHCLDS 11:13
PROVIDERS: Visit Provider Student in an Organized Health Care Education/Training Program
DX: Z00.00 Encounter for general adult medical examination without abnormal findings (principal); Z11.1 Encounter for screening for respiratory tuberculosis; Z11.59 Encounter for screening for other viral diseases; B20 Human immunodeficiency virus [HIV] disease; Z20.2 Contact with and (suspected) exposure to infections with a predominantly sexual mode of transmission
CPT/HCPCS: 36415; 80053; 80061; 83036; 84439; 84443; 85025; 86359; 86360; 86481; 86780; 86803; 87340; 87491; 87522; 87536; 87591; 87661

== ENCOUNTER 2025-04-05 08:56 | Outpatient (AMB) | payer MEDICAID, SELFPAY ==
--- NOTE | 2025-04-05 09:11 | A.OFFVIS_ITS ---
Vital Signs 04/05/25 09:12 Height 5 ft 3 in Weight 172 lb BMI 30.5 BP 128/78 Blood Pressure Location Lt brachial Position Sitting Pulse 69 Pulse Source Pulse Oximeter Pulse Oximetry (%) 98 Oxygen Delivery Method Room Air Intake Visit Reasons: + DANDY Intake Note: Patient is a new patient, externally referred by PCP Dede Flores for DANDY+ blood work. Boom Boss Required: No Accompanied by: Self / Same As Patient Allergies No Known Allergies (No Known Allergies*) Allergy (Verified 04/05/25 09:15) HPI Comments Details: 54 year old female with a PMH of HIV on biktarvy diagnosed 23 years ago and hypothyroidism, coming in as new patient referred by her primary doctor to evaluate for autoimmune cause of uveitis, given her positive DANDY 1:1280 speckled, positive RF of 98. Her uveitis episodes started 3 years ago, she had a very sharp pain and light was bothersome to her. Then she had headaches and this was something she didnt have before. She went to the needle loom tender [facility] and was diagnosed with uveitis records are not available to me right now will request these. She was given medication for that and it subsided Then 6 months later she had an episode of uvieits flare and then she was referre d to [facility] rheumatology in [facility] but patient reports the rsesilts were unremarkable, will request records ever since then no more flares of uveitis.she sees ophthalmology every year upcoming on apr 30 She denies history of joint pain as a child. She reports she has joint pain in both wrists bilaterally for one year, and its aggravated in cold and she also right knee pain for last 3 weeks. no morning stiffness no active synovitis no photosensitivity, no oral ulcers, no dysphagia, no sclerodactly, one miscarriage no blood clot, no hair fall. no bloody diarrhea, no skin rash, no pleurisy or chest pain she states she has some numbness in her fingers in the cold and endorses raynauds phenemon Her DEXA scan reviewed from 2019 revealed normal findings, no signs of osteoporosis. Her chest x-ray from 2021 revealed no findings of hilar lymphadenopathy seen with sarcoidosis. For her management of HIV ,she sees DR [facility] at [facility] Vital signs reviewed Physical Examination CONSTITUITIONAL Patient alert and cooperative. Well appearing and in no apparent painful distress HEENT Conjunctiva and sclera clear. No lymphadenopathy. CHEST/RESPIRATORY SYSTEM Normal respiratory effort and able to speak in complete sentences. Clear to auscultation bilaterally. No crackles, rales, rhonchi, wheezes heard. CARDIAC SYSTEM Regular rate and rhythm. S1 and S2 heard no murmurs. Radial pulses intact bilaterally MSK Hands * Right Hand: Able to make a fist. No swelling or tenderness to palpation of the MCPs, PIPs or DIPs. No deformities noted. * Left Hand: Able to make a fist. No swelling or tenderness to palpation of the MCPs, PIPs or DIPs. No deformities noted. Wrists * Right Wrist: Full ROM to flexion and extension. No swelling or TTP * Left Wrist: Full ROM to flexion and extension. No swelling or TTP Elbows * Right Elbow: Full ROM. No swelling or TTP. No TTP of the medial epicondyle. No TTP of the lateral epicondyle * Left Elbow: Full ROM. No swelling or TTP. No TTP of the medial epicondyle. No TTP of the lateral epicondyle Shoulders * Right shoulder: Full ROM. No swelling noted. No TTP of the AC joint. No TTP of the subacromial bursa. No TTP of the posterior shoulder * Left shoulder: Full ROM. No swelling noted. No TTP of the AC joint. No TTP of the subacromial bursa. No TTP of the posterior shoulder Hips * Right hip: Good ROM. No pain elicited with hip flexion/internal rotation/external rotation * Left hip: Good ROM. No pain elicited with hip flexion/internal rotation/external rotation Hip bursa: No tenderness to palpation bilaterally Knees * Right knee: Full ROM. No swelling noted. No TTP of the knee joint line. No TTP of pes anserine bursa * Left knee: Full ROM. No swelling noted. No TTP of the knee joint line. No TTP of pes anserine bursa. Ankles * Right ankle: Good ankle dorsiflexion and plantar flexion. No swelling. No TTP of the ankle joint * Left ankle: Good ankle dorsiflexion and plantar flexion. No swelling. No TTP of the ankle joint Feet * Right foot: Negative squeeze test * Left foot: Negative squeeze test Tender points? * No tenderness to palpation of the bilateral trapezius, supraspinatus, anterior costochondral junctions, bilateral suboccipital muscle insertions SKIN No rashes PFSH Medical History (Updated 04/05/25 @ 10:29 by Sara Thomas MD) HIV (human immunodeficiency virus infection) Hypothyroidism Surgical History H/O tubal ligation Previous section Social History (Updated 04/05/25 @ 09:20 by Funmi Aguayo CMA) Household Members: Spouse Alcohol intake: current Alcohol intake frequency: holidays/special occasions only Patient Tobacco Use Status: Never used Tobacco Female Reproductive History Menstrual Age of Menarche: 12 Date of menopause: 05/13/09 Physical Exam Vital Signs: Last Vital Signs Pulse 69 04/05/25 09:12 BP 128/78 04/05/25 09:12 Pulse Ox 98 04/05/25 09:12 Oxygen Delivery Method Room Air 04/05/25 09:12 BMI result Body Mass Index 30.5 Assessment & Plan Assessment & Plan (1) Uveitis: Code(s): H20.9 - Unspecified iridocyclitis Category: Medical (2) Positive antinuclear antibody: Code(s): R76.89 - Other specified abnormal immunological findings in serum Category: Medical (3) Joint pain: Code(s): M25.50 - Pain in unspecified joint Category: Medical Qualifiers: Joint pain location: wrist Laterality: bilateral Qualified Code(s): M25.531 - Pain in right wrist; M25.532 - Pain in left wrist Plan 54-year-old female presented to us for evaluation of underlying autoimmune disorder given her history of uveitis, positive DANDY positive RF in the setting of HIV and hepatitis-C infection. Currently, HIV titers are elevated. Based on patient's history, and her clinical exam there is very low suspicion of autoimmune features like polyarticular BAKARI in childhood, low suspicion for SLE or other autoimmune diseases like psoriatic disease, Behcet's, sarcoidosis or inflammatory bowel disease. I will complete her workup today, including blood work comprising of DANDY, DANDY subsets, CT C4, urine protein creatinine ratio, RF, CCP, Benjmain level. I will also obtain bilateral hand, wrist and knee x-rays to further evaluate her joint pain, although this seems more of noninflammatory in nature. I will request records from her needle loom tender and ID doctor. Her HIV seems to be active on most recent blood work, and this could be triggering her prior episodes of uveitis. Infections like HIV and hepatitis-C can trigger false- positive DANDY and rheumatoid factor, therefore these have to be correlated with history and clinical exam to make a diagnosis of autoimmune disorders. We will see her back in 5 weeks to discuss blood work and x-rays Orders: Orders C Reactive Protein Today M32.9 - Systemic lupus erythematosus, unspecified Complement C4 Today M32.9 - Systemic lupus erythematosus, unspecified UA and rflx microscopic Today M32.9 - Systemic lupus erythematosus, unspecified Sjogren's Antibodies Today M32.9 - Systemic lupus erythematosus, unspecified Anti DNA DS Antibody Today M32.9 - Systemic lupus erythematosus, unspecified DANDY Reflex Titer and Pattern Today M32.9 - Systemic lupus erythematosus, unspecified Cyclic Citrullinated Peptide Today R76.0 - Raised antibody titer Scleroderma 70 Antibody Today R76.0 - Raised antibody titer Histone Antibody Today R76.0 - Raised antibody titer XR Hand Adam 2V Today M25.50 - Pain in unspecified joint Angiotensin Converting Enzyme Today R76.89 - Other specified abnormal immunological findings in serum Erythrocyte Sedimentation Rate Today M32.9 - Systemic lupus erythematosus, unspecified Complement C3 Today M32.9 - Systemic lupus erythematosus, unspecified Protein Creatinine Ratio, Ur Today M32.9 - Systemic lupus erythematosus, unspecified Sm Sm/SENIOR JAVASCRIPT DEVELOPER Antibodies Today M32.9 - Systemic lupus erythematosus, unspecified DNA Double Stranded-Crithidia Today M32.9 - Systemic lupus erythematosus, unspecified Rheumatoid Factor Today R76.0 - Raised antibody titer Anti-Centromere B Antibodies Today R76.0 - Raised antibody titer EDY 1 Antibody Today R76.0 - Raised antibody titer XR Wrist Adam 2V Today M25.50 - Pain in unspecified joint XR Knee Adam 1or 2V Today M25.50 - Pain in unspecified joint Coding Level of Care Code New Pt Level 5 (86387) Diagnoses Uveitis H20.9 Positive antinuclear antibody R76.89 Pain of both wrist joints M25.531; M25.532 Joint pain location: wrist Laterality: bilateral
[2025-04-05 09:12] VITALS: BP 128/78; PULSE 69; O2SAT 98; BMI 30.5
--- OUTSIDE RECORDS SUMMARY | 2025-04-05 09:37 | XMS_ITS | Patient Health Record ---
Author Organization [facility] Address [address] [place] [address] Care Team Providers Care Tooth Cutter Spur Name Role Phone Yane Stauffer MD, Vasiliy Primary Care Provide r Fernando DotsonCarlos Unavailable [phone] Reason For Referral No Information Medications Medication SIG (Take, Route, Fr equency, Duration) Notes Start Date End Date Status Reyataz 300mg Active Epzicom 600mg Active Synthroid 88mg Activ e Bentyl 10 MG Capsule 1-2 capsules Orally Q 6 hours prn abdominal pain/cramps; Duration: 30 day(s) 03/13/2013 Active Norvir 100mg Active Social History Social History Additional Details Category Social Info Options Details Miscellaneous: Marital status: Occupation: unemployed Section Notes: Nonsmoker; no significant am ounts of alcohol Nonsmoker; no significant am ounts of alcohol Problems Problem Type SNOMED Code ICD Code Onset Dates Problem Status W/U Status Risk Notes Problem Esophageal reflux (546717378) Esophageal reflux (530.81) Active confirmed Problem Irritable bowel syndrome (96253463) Irritable bowel syndrome (564.1) Active confirmed Problem Epigastric pain (66970808) Abdominal pain, epigastric (789.06) Active confirmed Problem Constipation (90365671) Constipation (564.00) Active confirmed Plan Of Treatment No Information Insurance Providers Payer Name Payer Address Payer Phone Subscriber Number Group Number Insured Name Patient Relationship to Insured Coverage Start Date Coverage End Date [facility] [employer] [facility] [address] [address] [place], [place] [id number] LINDSEY HENSON Self - patient is the insured MEDICAID OF [facility] [address] [place] [address] [id number] LINDSEY HENSON Self - patient is the insured Medical (General) History Medical History History ICD Code Chronic Hep C-liver biopsy i n 2003 with Gr 3/4 hepatitis, and Stage 0/IV-Genotype 1--reports successful Rx with Dr. Hui HIV Infection Denies [place],DM,CVA,Lung disease,renal dise ase GERD Hypothyroidism Seasonal allergies Surgical History Surgery Date(Month/Year) section D & C Negative Lymph node biopsy
== END 2025-04-05 10:13 | disposition home or self-care (01) ==
LOC: HO.RHES 08:57
PROVIDERS: PCP Student in an Organized Health Care Education/Training Program; Visit Provider Student in an Organized Health Care Education/Training Program
DX: H20.9 Unspecified iridocyclitis (principal); R76.89 Other specified abnormal immunological findings in serum; M25.531 Pain in right wrist; M25.532 Pain in left wrist
CPT/HCPCS: 99204

== ENCOUNTER 2025-04-05 08:56 | Outpatient (REF) | payer MEDICAID, SELFPAY ==
[2025-04-05 13:17] LABS: Appearance Urine Clear; Glucose Urine UA Negative (Negative); PH 6.5 (5.0-9.0); Specific Gravity - Urine 1.010 (1.005-1.025); UMIC TRIGGER UA YES
[2025-04-05 14:02] LABS: Total Protein Urine Random < 7 mg/dL (<12)
[2025-04-05 14:04] LABS: Erythrocyte Sedimentation Rate 15 MM/HR (0-20)
[2025-04-06 17:53] LABS: Antibody to SS-A Antigen <1.0 NEG AI (<1.0 NEG); Antibody to SS-B Antigen <1.0 NEG AI (<1.0 NEG); SM/Ribonucleoprotein Ab <1.0 NEG AI (<1.0 NEG); Smith Protein <1.0 NEG AI (<1.0 NEG)
[2025-04-09 08:58] LABS: DNAds, Crithidia Antibody Negative (Negative)
[2025-04-09 15:33] LABS: ANA Pattern 3 Nuclear, Speckled; ANA Titer 3 1:80 titer; Anti Nuclear Antibody Pattern Nuclear, Centromere; Anti Nuclear Antibody Screen POSITIVE (NEGATIVE); Anti Nuclear Antibody Titer > OR = 1:1280 titer
== END 2025-04-05 08:57 | disposition home or self-care (01) ==
LOC: HO.HKASLDS 08:56
PROVIDERS: PCP Student in an Organized Health Care Education/Training Program; Visit Provider Student in an Organized Health Care Education/Training Program
DX: M32.9 Systemic lupus erythematosus, unspecified (principal); R76.0 Raised antibody titer; H20.9 Unspecified iridocyclitis; R76.89 Other specified abnormal immunological findings in serum; M25.531 Pain in right wrist; M25.532 Pain in left wrist; Z01.84 Encounter for antibody response examination
CPT/HCPCS: 36415; 81001; 82570; 83516; 84156; 85652; 86038; 86039; 86140; 86160; 86200; 86225; 86235; 86255; 86431; 99202

== ENCOUNTER 2025-04-09 11:35 | Outpatient (REF) | payer MEDICAID, SELFPAY ==
--- NOTE | ~2025-04-09 | XR_ITS ---
EXAMINATION: XR HAND, RIGHT XR HAND, LEFT XR WRIST, RIGHT XR WRIST, LEFT CLINICAL INFORMATION: M25.50 - Pain in unspecified joint COMPARISON: None available. TECHNIQUE: PA, lateral, and oblique views of each hand and PA, lateral, and oblique views of each wrist. FINDINGS: RIGHT HAND AND WRIST: The bones and soft tissues are normal. No fracture. Alignment is anatomic. Joint spaces are maintained. No erosions or soft tissue calcifications. LEFT HAND AND WRIST: The bones and soft tissues are normal. No fracture. Alignment is anatomic. Joint spaces are maintained. No erosions. Minimal soft tissue calcification adjacent to the radial styloid. This may be vascular. XR/XR Wrist Adam min 3V IMPRESSION: Normal hands and wrists. Electronically signed by: Latonya Raymundo MD 04/09/2025 12:47 PM [facility]
--- NOTE | ~2025-04-09 | XR_ITS ---
EXAMINATION: XR KNEE, bilateral CLINICAL INFORMATION: M25.50 - Pain in unspecified joint COMPARISON: None available. TECHNIQUE: Weightbearing AP and lateral views of each knee FINDINGS: Bone alignment is normal. No fracture or dislocation. Normal joint spaces. No joint effusion. XR/XR Knee Adam 1or 2V IMPRESSION: Normal knees. Electronically signed by: Latonya Raymundo MD 04/09/2025 12:[address] [facility]
--- NOTE | ~2025-04-09 | XR_ITS ---
See combined bilateral hand and wrist report from the same day Electronically signed by: Latonya Raymundo MD 04/09/2025 12:47 PM EST
--- OUTSIDE RECORDS SUMMARY | 2025-04-09 11:40 | XMS_ITS | Patient Health Record ---
Author Organization [facility] Address [address] [place] [address] Care Team Providers Care Patrol Conductor Name Role Phone Yane Stauffer MD, Vasiliy Primary Care Provide r Fernando DotsonCarlos Unavailable [phone] Reason For Referral No Information Medications Medication [...] W/U Status Risk Notes Problem Esophageal reflux (937474167) Esophageal reflux (530.81) Active confirmed Problem Irritable bowel syndrome (31024717) Irritable bowel syndrome (564.1) Active confirmed Problem Epigastric pain (59071025) Abdominal pain, epigastric (789.06) Active confirmed Problem Constipation (31704788) Constipation (564.00) Active confirmed Plan Of Treatment No Information Insurance Providers Payer Name Payer Address Payer Phone Subscriber Number Group Number Insured Name Patient Relationship to Insured Coverage Start Date Coverage End Date [facility] [employer] [facility] [address] [address] [place], [place] [id number] LINDSEY HENSON Self - patient is the insured MEDICAID OF [facility] [address] [place] [address] [id number] LINDSEY HENSON Self - patient is the insured Medical (General) History Medical History History ICD Code Chronic Hep C-liver biopsy i n 2003 with Gr 3/4 hepatitis, and Stage 0/IV-Genotype 1--reports successful Rx with Dr. Hui HIV Infection Denies [place],DM,CVA,Lung disease,renal dise ase GERD Hypothyroidism Seasonal allergies Surgical History Surgery Date(Month/Year) section D & C Negative Lymph node biopsy
== END 2025-04-09 11:36 | disposition home or self-care (01) ==
LOC: HO.XRAY 11:35
PROVIDERS: Visit Provider Student in an Organized Health Care Education/Training Program
DX: M25.561 Pain in right knee (principal); M25.562 Pain in left knee; M25.531 Pain in right wrist; M25.532 Pain in left wrist; M79.641 Pain in right hand; M79.642 Pain in left hand
CPT/HCPCS: 73110; 73130; 73560

== ENCOUNTER → 2025-04-09 11:38 | Outpatient (BNV) | payer MEDICAID, SELFPAY | PROVIDERS: Visit Provider Radiology Diagnostic Radiology | DX: M79.642 Pain in left hand (principal); M79.641 Pain in right hand; M25.531 Pain in right wrist; M25.532 Pain in left wrist; M25.561 Pain in right knee; M25.562 Pain in left knee | CPT/HCPCS: 73110; 73130; 73560 ==

== ENCOUNTER 2025-04-20 10:28 | Outpatient (AMB) | payer MEDICAID, SELFPAY ==
[2025-04-20 10:34] VITALS: BP 111/56; PULSE 70; BMI 28.7
--- NOTE | 2025-04-20 10:34 | MHC.OFFVIS ---
Vital Signs 04/20/25 10:34 Height 5 ft 3 in Weight 162 lb BMI 28.7 BP 111/56 L Blood Pressure Location Lt brachial Position Sitting Pulse 70 Intake Visit Reasons: Colonoscopy Screening Intake Note: New patient in office today for colonoscopy screening. CC: Last colonoscopy here at [facility] per patient about 5 years ago. Per patient polyps were removed at that time. She reports constipation alternating with diarrhea. She reports abd bloating and pain with foods like yogurt, milk, cheese, ice cream. Accompanied by: Self / Same As Patient Allergies No Known Allergies (No Known Allergies*) Allergy (Verified 04/20/25 10:42) HPI HPI Colonoscopy Screening: Details: 54-year-old male here for preprocedural meeting to discuss a screening colonoscopy. He is referred by [facility]. PMX HIV Hypothyroid Depression with anxiety Abdomen Pap smear History of narrow angle glaucoma status post iridotomy treatment * SURGICAL HISTORY Laser iridotomy Colonoscopy C section Tubal ligation * ALLERGIES Fosamprnavir Lopinavir Tenofivir * [facility]: Laboratory Tests 03/30/25 11:16 WBC 4.5 L Hgb 12.9 Hct 38.2 Plt Count 218 Estimated GFR > 60 Total Bilirubin 0.5 AST 23 ALT 18 Alkaline Phosphatase 53 TSH 0.50 Free T4 1.13 Prior colonoscopies: She had a colonoscopy about 6 years ago, and polyps were removed, and it was done here but the details are lost to history. Bowel or upper GI problems: Occasional mixed IBS, other mireles no Cardiac or respiratory problems: No Problems with anesthesia or sedation: No Infectious disease problems: HIV Family history of colon cancer or polyps: She had prior colon polyps, no known FHX PFSH Medical History HIV (human immunodeficiency virus infection) Hypothyroidism Surgical History S/P colonoscopy H/O tubal ligation Previous section Social History (Updated 04/05/25 @ 09:20 by Funmi Aguayo [facility]) Household Members: Spouse Alcohol intake: current Alcohol intake frequency: holidays/special occasions only Patient Tobacco Use Status: Never used Tobacco Female Reproductive History Menstrual Age of Menarche: 12 Date of menopause: 05/13/09 Review of Systems Const Denies fatigue, Denies fever(s), Denies night sweats, Denies poor appetite and Denies weight loss Eyes Details: glasses Reports requires corrective lenses ENT Reports Normal hearing present, Denies dental pain, Denies dysphagia, Denies hearing loss, Denies mouth pain, Denies odynophagia, Denies throat swelling, Denies tongue swelling and Reports other (Dentition adequate) Card Reports no additional complaints Resp Reports no additional complaints GI Details: Denies abdominal pain, Denies melena, Denies bloating, Denies hematochezia, Reports constipation, Denies GI cramping, Denies dysphagia, Denies excessive flatus, Denies early satiety, Denies heartburn, Denies diarrhea, Reports loose stools, Denies nausea, Denies odynophagia, Denies vomiting and Denies hematemesis Skin/Breast Denies pruritus, Denies lesions, Denies rash and Denies jaundice Neuro Reports Normal hearing present and Denies Abnormal speech present Endo Denies fatigue Aller/Immun Denies throat swelling and Denies tongue swelling Physical Exam Const General: cooperative, no acute distress, well developed and well groomed Nutritional Appearance: well nourished, obese and overweight Orientation/consciousness: oriented to person, oriented to place and oriented to time Limitations: No language barrier, ambulation with cane, ambulation with walker and wheelchair HEENT Head: Yes normocephalic and Yes atraumatic Eyes General: appearance normal, both eyes and all related structures Pupils: Equal, round and reactive pupils present Neck Neck: Yes normal visual inspection and Yes no lymphadenopathy Thyroid: Thyroid normal Resp Effort & Inspection: normal respiratory effort and able to speak in complete sentences Auscultation: clear to auscultation bilaterally Cardio Rate: regular rate Rhythm: regular rhythm Heart sounds: Normal, physiologic split S2 sound present Peripheral pulses: radial pulses present and posterior tibial pulses present GI Inspection: No distended, No Abdominal panniculus present and Yes obesity Palpation (GI): Soft to palpation, nontender, no guarding, not rigid and No hepatosplenomegaly present Percussion: Yes normal to percussion Auscultation: normal bowel sounds Rectal Exam - Female: deferred Abdomen image:  1. surgical scar Skin General skin exam: no rashes or lesions noted, turgor normal, skin not dry, no jaundice, No spider nevi and no striae Rashes: no rashes Nails: normal Neuro General: oriented to person, oriented to place and oriented to time Cranial nerves: Yes Equal, round and reactive pupils present and Yes Normal hearing present Speech: No Abnormal speech present Extrem General: Yes normal to inspection, No clubbing, No cyanosis and No edema Psych Thought process: Normal thought process present and not confabulating Thought content: Normal thought content present Insight: Good insight present (Psych) Judgement: Good judgement present (Psych) Assessment & Plan Assessment & Plan (1) HIV (human immunodeficiency virus infection): Code(s): Z21 - Asymptomatic human immunodeficiency virus [HIV] infection status Category: Medical (2) Pre-op examination: Code(s): Z01.818 - Encounter for other preprocedural examination Category: Medical (3) Colonoscopy causing post-procedural bleeding: Comment: On past colonoscopy done here and she presented to [facility] and was admitted Code(s): K91.840 - Postprocedural hemorrhage of a digestive system organ or structure following a digestive system procedure Category: Medical Plan Prior colonoscopies: She had a colonoscopy about 6 years ago, and polyps were removed, and it was done here but the details are lost to history. Bowel or upper GI problems: Occasional mixed IBS, other mireles no Cardiac or respiratory problems: No Problems with anesthesia or sedation: No Infectious disease problems: HIV Family history of colon cancer or polyps: She had prior colon polyps, no known FHX Orders: Referrals GI Procedure Notification Z01.818 - Encounter for other preprocedural examination, Z21 - Asymptomatic human immunodeficiency virus [HIV] infection status Medications: New peg 3350-electrolytes 236-22.74-6.74 -5.86 gram (Golytely) until fecal effluent is clear; do not exceed a total volume of 2,000 mL 240 mL PO Q10M 4,000 mL 0RF 1 day Z12.11 - Encounter for screening for malignant neoplasm of colon bisacodyl (Dulcolax (bisacodyl)) 10 mg (2 x 5 mg) PO BEDTIME 4 tabs 0RF 2 days Coding Level of Care Code New Pt Level 3 (97663) Diagnoses HIV (human immunodeficiency virus infection) Z21 Pre-op examination Z01.818 Colonoscopy causing post-procedural bleeding K91.840
== END 2025-04-20 11:12 | disposition home or self-care (01) ==
LOC: HO.HGI 10:29
PROVIDERS: PCP Student in an Organized Health Care Education/Training Program; Visit Provider Nurse Practitioner
DX: Z01.818 Encounter for other preprocedural examination (principal); Z12.11 Encounter for screening for malignant neoplasm of colon; Z21 Asymptomatic human immunodeficiency virus [HIV] infection status; K91.840 Postprocedural hemorrhage of a digestive system organ or structure following a digestive system procedure
CPT/HCPCS: 99203

== ENCOUNTER → 2025-04-20 10:28 | Outpatient (BNVA) | payer MEDICAID, SELFPAY | PROVIDERS: PCP Student in an Organized Health Care Education/Training Program; Visit Provider Nurse Practitioner | DX: Z01.818 Encounter for other preprocedural examination (principal); Z21 Asymptomatic human immunodeficiency virus [HIV] infection status; K91.840 Postprocedural hemorrhage of a digestive system organ or structure following a digestive system procedure | CPT/HCPCS: 99212 ==

== ENCOUNTER 2025-05-10 07:37 | Outpatient (AMB) | payer MEDICAID, SELFPAY ==
--- OUTSIDE RECORDS SUMMARY | 2025-05-10 07:40 | XMS_ITS | Patient Health Record ---
Author Organization [facility] Address [address] [place] [address] Care Team Providers Care Creative Art Therapist Name Role Phone Yane Stauffer MD, Vasiliy Primary Care Provide r Fernando DotsonCarlos Unavailable [phone] Reason For Referral No Information Medications Medication [...] W/U Status Risk Notes Problem Esophageal reflux (636671844) Esophageal reflux (530.81) Active confirmed Problem Irritable bowel syndrome (88794854) Irritable bowel syndrome (564.1) Active confirmed Problem Epigastric pain (53658811) Abdominal pain, epigastric (789.06) Active confirmed Problem Constipation (44248721) Constipation (564.00) Active confirmed Plan Of Treatment No Information Insurance Providers Payer Name Payer Address Payer Phone Subscriber Number Group Number Insured Name Patient Relationship to Insured Coverage Start Date Coverage End Date [facility] [address] [address] [place], [place] [id number] LINDSEY HENSON Self - patient is the insured MEDICAID OF [facility] [address] [place] [address] [id number] LINDSEY HENSON Self - patient is the insured Medical (General) History Medical History History ICD Code Chronic Hep C-liver biopsy i n 2003 with Gr 3/4 hepatitis, and Stage 0/IV-Genotype 1--reports successful Rx with Dr. Hui HIV Infection Denies [place],DM,CVA,Lung disease,renal dise ase GERD Hypothyroidism Seasonal allergies Surgical History Surgery Date(Month/Year) section D & C Negative Lymph node biopsy
[2025-05-10 07:58] VITALS: BP 124/80; PULSE 83; O2SAT 98; BMI 28.9
--- NOTE | 2025-05-10 07:58 | A.OFFVIS_ITS ---
Vital Signs 05/10/25 07:58 Height 5 ft 3 in Weight 163 lb BMI 28.9 BP 124/80 Blood Pressure Location Lt brachial Position Sitting Pulse 83 Pulse Source Pulse Oximeter Pulse Oximetry (%) 98 Oxygen Delivery Method Room Air Intake Visit Reasons: 5 week f/u Intake Note: Patient presents for follow up on joint pain, x-rays, and labs. Disaster Recovery Coordinator Required: No Accompanied by: Self / Same As Patient Allergies No Known Allergies (No Known Allergies*) Allergy (Verified 05/10/25 08:01) HPI Comments Details: 54 year old female with a PMH of HIV on biktarvy diagnosed 23 years ago and hypothyroidism, coming in for follow-up. She was referred by her primary doctor to evaluate for autoimmune cause of uveitis, given her positive DANDY 1:1280 speckled, positive RF of 98. Her results showed that she has a high titer positive DANDY, with centromere antibody positive. Her x-rays of the hands wrists and knees were essentially normal. On review of systems against she endorses Raynaud's phenomena, otherwise she denies skin thickening, sclerodactyly, dysphagia or shortness of breath. She has upcoming appointment with her ID doctor in May 2025 I reviewed her latest optometry nose, there was no signs of uveitis in the eye. Initial history: Her uveitis episodes started 3 years ago, she had a very sharp pain and light was bothersome to her. Then she had headaches and this was something she didnt have before. She went to the [facility] and was diagnosed with uveitis records are not available to me right now will request these. She was given medication for that and it subsided Then 6 months later she had an episode of uvieits flare and then she was referred to [facility] in [facility] but patient reports the rsesilts were unremarkable, will request records ever since then no more flares of uveitis.she sees ophthalmology every year upcoming on apr 30 She denies history of joint pain as a child. She reports she has joint pain in both wrists bilaterally for one year, and its aggravated in cold and she also right knee pain for last 3 weeks. no morning stiffness no active synovitis no photosensitivity, no oral ulcers, no dysphagia, no sclerodactly, one miscarriage no blood clot, no hair fall. no bloody diarrhea, no skin rash, no pleurisy or chest pain she states she has some numbness in her fingers in the cold and endorses raynauds phenemon Her DEXA scan reviewed from 2019 revealed normal findings, no signs of osteoporosis. Her chest x-ray from 2021 revealed no findings of hilar lymphadenopathy seen with sarcoidosis. For her management of HIV ,she sees DR A[facility] at [facility] Vital signs reviewed Physical Examination CONSTITUITIONAL Patient alert and cooperative. Well appearing and in no apparent painful distress HEENT Conjunctiva and sclera clear. No lymphadenopathy. CHEST/RESPIRATORY SYSTEM Normal respiratory effort and able to speak in complete sentences. Clear to auscultation bilaterally. No crackles, rales, rhonchi, wheezes heard. CARDIAC SYSTEM Regular rate and rhythm. S1 and S2 heard no murmurs. Radial pulses intact bilaterally MSK Hands * Right Hand: Able to make a fist. No swelling or tenderness to palpation of the MCPs, PIPs or DIPs. No deformities noted. * Left Hand: Able to make a fist. No swelling or tenderness to palpation of the MCPs, PIPs or DIPs. No deformities noted. Wrists * Right Wrist: Full ROM to flexion and extension. No swelling or TTP * Left Wrist: Full ROM to flexion and extension. No swelling or TTP Elbows * Right Elbow: Full ROM. No swelling or TTP. No TTP of the medial epicondyle. No TTP of the lateral epicondyle * Left Elbow: Full ROM. No swelling or TTP. No TTP of the medial epicondyle. No TTP of the lateral epicondyle Shoulders * Right shoulder: Full ROM. No swelling noted. No TTP of the AC joint. No TTP of the subacromial bursa. No TTP of the posterior shoulder * Left shoulder: Full ROM. No swelling noted. No TTP of the AC joint. No TTP of the subacromial bursa. No TTP of the posterior shoulder Hips * Right hip: Good ROM. No pain elicited with hip flexion/internal rotation/external rotation * Left hip: Good ROM. No pain elicited with hip flexion/internal rotation/external rotation Hip bursa: No tenderness to palpation bilaterally Knees * Right knee: Full ROM. No swelling noted. No TTP of the knee joint line. No TTP of pes anserine bursa * Left knee: Full ROM. No swelling noted. No TTP of the knee joint line. No TTP of pes anserine bursa. Ankles * Right ankle: Good ankle dorsiflexion and plantar flexion. No swelling. No TTP of the ankle joint * Left ankle: Good ankle dorsiflexion and plantar flexion. No swelling. No TTP of the ankle joint Feet * Right foot: Negative squeeze test * Left foot: Negative squeeze test Tender points? * No tenderness to palpation of the bilateral trapezius, supraspinatus, anterior costochondral junctions, bilateral suboccipital muscle insertions SKIN No rashes PFSH Medical History (Updated 05/10/25 @ 09:00 by Sara Thomas MD) Narrow angle glaucoma suspect of both eyes HIV (human immunodeficiency virus infection) Hypothyroidism Surgical History H/O laser iridotomy S/P colonoscopy H/O tubal ligation Previous section Social History Household Members: Spouse Alcohol intake: current Alcohol intake frequency: holidays/special occasions only Patient Tobacco Use Status: Never used Tobacco Female Reproductive History Menstrual Age of Menarche: 12 Date of menopause: 05/13/09 Physical Exam Vital Signs: Last Vital Signs Pulse 83 05/10/25 07:58 BP 124/80 05/10/25 07:58 Pulse Ox 98 05/10/25 07:58 Oxygen Delivery Method Room Air 05/10/25 07:58 BMI result Body Mass Index 28.9 Assessment & Plan Assessment & Plan (1) Joint pain: Code(s): M25.50 - Pain in unspecified joint Category: Medical Qualifiers: Joint pain location: wrist Laterality: bilateral Qualified Code(s): M25.531 - Pain in right wrist; M25.532 - Pain in left wrist (2) Positive antinuclear antibody: Code(s): R76.89 - Other specified abnormal immunological findings in serum Category: Medical (3) HIV (human immunodeficiency virus infection): Code(s): Z21 - Asymptomatic human immunodeficiency virus [HIV] infection status Category: Medical Qualifiers: HIV symptom status: currently asymptomatic, with history of HIV-related illness Qualified Code(s): B20 - Human immunodeficiency virus [HIV] disease Plan 54-year-old female presented to us for evaluation of underlying autoimmune disorder given her history of uveitis, positive DANDY positive RF in the setting of HIV and hepatitis-C infection. Currently, HIV titers are elevated. Based on patient's history, and her clinical exam there is very low suspicion of autoimmune features like polyarticular BAKARI in childhood, low suspicion for SLE or other autoimmune diseases like psoriatic disease, Behcet's, sarcoidosis or inflammatory bowel disease. Complete workup revealed positive high titer DANDY, nuclear centromere pattern with positive centromere B antibody, and low C4 level. She does not have skin thickening, sclerodactyly, dysphagia shortness of breath. She does endorse Raynaud's phenomena and joint pain, imaging of her hands, wrists and knees were essentially normal. Her last eye exam did not reveal any signs of uveitis. She does have dry eyes, for which she uses [id number] eyedrops. Her joint pain seems to be more noninflammatory in nature, I did recommend that she try to do regular exercise, go to the gym and do aquatic therapy for joint pain. She also has a upcoming appointment with her infectious disease doctor in May 2025. I will follow up with her in 6 months for periodic surveillance for any new symptoms. Coding Level of Care Code Est Pt Level 4 (22987) Add On Problem Visit Only Diagnoses Pain of both wrist joints M25.531; M25.532 Joint pain location: wrist Laterality: bilateral Positive antinuclear antibody R76.89 Currently asymptomatic HIV infection, with history of HIV-related illness B20 HIV symptom status: currently asymptomatic, with history of HIV-related illness
== END 2025-05-10 08:28 | disposition home or self-care (01) ==
LOC: HO.RHES 07:38
PROVIDERS: PCP Student in an Organized Health Care Education/Training Program; Visit Provider Student in an Organized Health Care Education/Training Program
DX: M25.531 Pain in right wrist (principal); M25.532 Pain in left wrist; R76.89 Other specified abnormal immunological findings in serum; B20 Human immunodeficiency virus [HIV] disease
CPT/HCPCS: 99214

== ENCOUNTER → 2025-05-10 07:37 | Outpatient (BNVA) | payer MEDICAID, SELFPAY | PROVIDERS: PCP Student in an Organized Health Care Education/Training Program; Visit Provider Student in an Organized Health Care Education/Training Program | DX: R76.89 Other specified abnormal immunological findings in serum (principal); M25.531 Pain in right wrist; M25.532 Pain in left wrist; Z21 Asymptomatic human immunodeficiency virus [HIV] infection status; H04.123 Dry eye syndrome of bilateral lacrimal glands | CPT/HCPCS: 99212 ==